=== PATIENT | female | born 1990 | race Caucasian/White ===

== ENCOUNTER → 2018-02-13 14:56 | Outpatient (CLI) | payer OTHER, MEDICAID, SELFPAY ==
[2018-02-13 14:21] VITALS: TEMP 36.6
== END ==
PROVIDERS: Family Provider Family Medicine; PCP Family Medicine; Visit Provider Physician Assistant
DX: R19.7 Diarrhea, unspecified (principal); Z53.9 Procedure and treatment not carried out, unspecified reason

== ENCOUNTER → 2018-02-13 15:08 | Outpatient (CLI) | payer OTHER, MEDICAID, SELFPAY ==
[2018-02-13 14:21] VITALS: TEMP 36.6
== END ==
PROVIDERS: Family Provider Family Medicine; PCP Family Medicine; Visit Provider Physician Assistant
DX: R19.7 Diarrhea, unspecified (principal); Z53.9 Procedure and treatment not carried out, unspecified reason

== ENCOUNTER → 2018-05-07 10:28 | Outpatient (CLI) | payer OTHER, MEDICAID, SELFPAY ==
[2018-05-07 12:18] LABS: Hematocrit 44.9 % (36-46); Hemoglobin 15.5 g/dL (12.0-16.0); Mean Corpuscular HGB Conc 34.5 % (30-36); Mean Corpuscular Hemoglobin 32.8 PG (26-34); Mean Corpuscular Volume 95.3 fL (80-100); Platelet Count 195 X10^3/uL (150-400); Red Blood Cell Count 4.71 X10^6/uL (4.0-5.2); Red Cell Distribution Width 12.7 % (11.6-14.8); White Blood Cell Count 6.3 X10^3/uL (4.5-11.0)
[2018-05-07 13:33] LABS: Neutrophils Absolute Manual 4158 /uL (3000-5900); Total Cells Counted 100
[2018-05-07 13:35] LABS: RBC Morphology Normal Morphology
== END ==
PROVIDERS: PCP Family Medicine; Visit Provider Nurse Practitioner Family
DX: R10.31 Right lower quadrant pain (principal); R10.30 Lower abdominal pain, unspecified
CPT/HCPCS: 36415; 85025

== ENCOUNTER 2018-05-11 11:18 | Emergency (ER) | payer OTHER, MEDICAID, SELFPAY ==
[2018-05-11 11:29] VITALS: BP 136/89; PULSE 84; RESP 14; TEMP 36.3; O2SAT 97; BMI 35.9
[2018-05-11 12:02] LABS: Add Manual Diff / Slide Review NO; Basophils Percent Auto 0.6 % (0-2); Eosinophils Percent Auto 1.4 % (2-4); Hematocrit 45.2 % (36-46); Hemoglobin 15.7 g/dL (12.0-16.0); Lymphocytes Percent Auto 33.8 % (25-40); Mean Corpuscular HGB Conc 34.6 % (30-36); Mean Corpuscular Hemoglobin 33.1 PG (26-34); Mean Corpuscular Volume 95.5 fL (80-100); Monocytes Percent Auto 7.5 % (3-14); Neutrophils Absolute Auto 4000 /uL (3000-5900); Neutrophils Percent Auto 56.7 % (50-75); Platelet Count 193 X10^3/uL (150-400); Red Blood Cell Count 4.73 X10^6/uL (4.0-5.2); Red Cell Distribution Width 12.8 % (11.6-14.8); White Blood Cell Count 7.1 X10^3/uL (4.5-11.0)
[2018-05-11 12:12] LABS: PTT Partial Thromboplastin Tim 30 SECONDS (26.4-36.2)
[2018-05-11 12:14] LABS: Alanine Aminotransferase 31 IU/L (9-52); Albumin 4.5 g/dL (3.5-5.0); Albumin Globulin Ratio 1.5 (1.0-2.8); Alkaline Phosphatase 66 U/L (38-126); Aspartate Aminotransferase 32 IU/L (14-36); BUN Creatinine Ratio 21.7 (6-22); Bilirubin Total 0.7 mg/dL (0.2-1.3); Blood Urea Nitrogen 13 mg/dL (7-17); Calcium 9.4 mg/dL (8.4-10.2); Carbon Dioxide 29 mmol/L (22-32); Chloride 101 mmol/L (98-107); Estimated Glomerular Filt Rate > 60.0 mL/min (>60); Globulin 3.1 g/dL (1.7-4.1); Glucose 89 mg/dL (70-100); Lipase 103 U/L (23-300); Potassium 4.6 mmol/L (3.4-5.1); Sodium 139 mmol/L (137-145); Total Protein 7.6 g/dL (6.3-8.2)
[2018-05-11 12:25] LABS: HEMOLYSIS 59 (0-50)
[2018-05-11 12:35] VITALS: BP 119/72; PULSE 68; RESP 16; O2SAT 98
--- NOTE | 2018-05-11 12:38 | ED.ABDPAIN ---
HPI - Abdominal Pain <THOMAS Campos - Last Filed: 05/11/18 23:02> General Chief Complaint: Abdominal Pain Stated Complaint: LOWER ABD PAIN Time Seen by Provider: 05/11/18 12:40 Source: patient Mode of arrival: ambulatory Limitations: no limitations History of Present Illness HPI narrative: 27-year-old female here for complaint of pain into the right lower quadrant over the past 4 weeks. She has been seen by primary care provider for this and states that she has a CT of her abdomen pending however she has not able to obtain it as a awaiting insurance requirements. She reports that she had increased pain today when her 3-year-old child jumped up on her. Palpation to the area also causes increased pain. She denies any relievers of her pain. No nausea or vomiting. Last bowel movement was earlier today and was unremarkable. She denies any urinary symptoms. No abnormal vaginal discharge or bleeding. She denies any changes in sexual partners. She denies any trauma to the area. No other concerns or complaints at this time for MD complaint: abdominal pain Related Data Home Medications Medication Instructions Recorded Confirmed Lactobacillus acidophilus capsule 100 mg PO DAILY 02/13/18 05/11/18 Previous Rx's Medication Instructions Recorded hydrocodone-acetaminophen 1 tab PO Q4-6H PRN #15 tab 05/11/18 ondansetron 4 mg PO Q6-8H PRN #10 tab 05/11/18 Allergies Allergy/AdvReac Type Severity Reaction Status Date / Time hydromorphone [From DILAUDID] AdvReac Unknown DIZZINESS Verified 05/11/18 11:34 Review of Systems <THOMAS Campos - Last Filed: 05/11/18 23:02> Constitutional Denies chills, Denies fever(s), Denies lethargy and Denies weakness Eyes Denies change in vision, Denies eye discharge, Denies irritation and Denies loss of vision ENT Ears, Nose, Mouth, and Throat: Denies change in voice, Denies neck pain and Denies sore throat Cardiovascular Denies chest pain, Denies irregular heart rhythm, Denies lightheadedness, Denies palpitations, Denies dyspnea, Denies dyspnea on exertion and Denies orthopnea Respiratory Denies cough, Denies dyspnea, Denies dyspnea on exertion and Denies wheezing Gastrointestinal Gastrointestinal: Reports abdominal pain Genitourinary Denies hematuria, Denies flank pain, Denies urinary incontinence and Denies urinary urgency Musculoskeletal Denies neck pain Integumentary/Breasts Denies pruritus, Denies erythema, Denies rash and Denies wounds Neurologic Denies confusion, Denies loss of vision and Denies weakness Psychiatric Denies anxiety, Denies confusion, Denies depression, Denies homicidal ideation and Denies suicidal ideation Endocrine Denies palpitations Hematologic/Lymphatic Denies easy bruising Allergic/Immunologic Denies wheezing Exam <THOMAS Campos - Last Filed: 05/11/18 23:02> Initial Vital Signs Initial Vital Signs: Vital Signs Temperature 97.4 F L 05/11/18 11:29 Pulse Rate 84 05/11/18 11:29 Respiratory Rate 14 05/11/18 11:29 Blood Pressure 136/89 H 05/11/18 11:29 Pulse Oximetry 97 05/11/18 11:29 Const General: cooperative and well developed Nutritional Appearance: well nourished Orientation: alert, awake, oriented x3 and not confused HENOH Mouth: oral mucosae normal and moist mucous membranes Eyes Conjunctivae: conjunctivae normal Sclera: sclerae normal Pupils: PERRL EOM: EOM intact bilaterally Resp Effort & Inspection: normal respiratory effort, able to speak in complete sentences, no respiratory distress and no use of accessory muscles Auscultation: clear to auscultation bilaterally, no rales, no rhonchi and no wheezes Cardio Rate: regular rate Rhythm: regular rhythm Heart Sounds: no click, no gallops, no murmurs and no rubs GI Inspection: non-distended Palpation: soft, no hepatosplenomegaly, No guarding, No hernia, No mass, No pulsatile mass and tender (Tenderness on palpation to right lower quadrant) Auscultation: normal bowel sounds General: No CVA tenderness Skin General: no rashes or lesions noted, No jaundice and No petechiae Neuro General: alert, oriented x3, gait normal and no focal motor deficits Speech: speech normal <Joaquín Meyer MD - Last Filed: 05/13/18 08:45> Initial Vital Signs Initial Vital Signs: Vital Signs Temperature 97.4 F L 05/11/18 11:29 Pulse Rate 84 05/11/18 11:29 Respiratory Rate 14 05/11/18 11:29 Blood Pressure 136/89 H 05/11/18 11:29 Pulse Oximetry 97 05/11/18 11:29 Course <THOMAS Campos - Last Filed: 05/11/18 23:02> Orders Ordered: Discontinued Medications Hydrocodone Bitart/Acetaminophen ([place] 5/325) 1 tab PO NOW ONE Stop: 05/11/18 14:00 Last Admin: 05/11/18 14:20 Dose: 1 tab Vital Signs - 8 hr 05/11/18 11:29 05/11/18 12:35 05/11/18 13:59 Temperature 97.4 F L Pulse Rate 84 68 71 Respiratory Rate 14 16 16 Blood Pressure 136/89 H Blood Pressure [Left Arm] 119/72 122/77 H Pulse Oximetry 97 98 98 <Joaquín Meyer MD - Last Filed: 05/13/18 08:45> Orders Ordered: Discontinued Medications Hydrocodone Bitart/Acetaminophen ([place] 5/325) 1 tab PO NOW ONE Stop: 05/11/18 14:00 Last Admin: 05/11/18 14:20 Dose: 1 tab Vital Signs - 8 hr 05/11/18 11:29 05/11/18 12:35 05/11/18 13:59 Temperature 97.4 F L Pulse Rate 84 68 71 Respiratory Rate 14 16 16 Blood Pressure 136/89 H Blood Pressure [Left Arm] 119/72 122/77 H Pulse Oximetry 97 98 98 MDM - Abdominal Pain <THOMAS Campos - Last Filed: 05/11/18 23:02> Lab Data Result diagrams: 05/11/18 11:44 05/11/18 11:44 Lab Results 05/11/18 05/11/18 05/11/18 Range/Units 11:44 11:44 11:44 WBC 7.1 (4.5-11.0) X10^3/uL RBC 4.73 (4.0-5.2) X10^6/uL Hgb 15.7 (12.0-16.0) g/dL Hct 45.2 (36-46) % MCV 95.5 (80-100) fL MCH 33.1 (26-34) PG MCHC 34.6 (30-36) % RDW 12.8 (11.6-14.8) % Plt Count 193 (150-400) X10^3/uL Neut % (Auto) 56.7 (50-75) % Lymph % (Auto) 33.8 (25-40) % Cherry % (Auto) 7.5 (3-14) % Eos % (Auto) 1.4 L (2-4) % Baso % (Auto) 0.6 (0-2) % Neut # (Auto) 4000 (3423-8629) /uL PT 11.0 (10.1-12.7) SECONDS INR 1.0 (0.9-1.3) APTT 30 (26.4-36.2) SECONDS Sodium 139 (137-145) mmol/L Potassium 4.6 (3.4-5.1) mmol/L Chloride 101 (98-107) mmol/L Carbon Dioxide 29 (22-32) mmol/L BUN 13 (7-17) mg/dL Creatinine 0.60 (0.52-1.04) mg/dL Estimated GFR > 60.0 (>60) mL/min BUN/Creatinine Ratio 21.7 (6-22) Glucose 89 (70-100) mg/dL Calcium 9.4 (8.4-10.2) mg/dL Total Bilirubin 0.7 (0.2-1.3) mg/dL AST 32 (14-36) IU/L ALT 31 (9-52) IU/L Alkaline Phosphatase 66 (38-126) U/L Total Protein 7.6 (6.3-8.2) g/dL Albumin 4.5 (3.5-5.0) g/dL Globulin 3.1 (1.7-4.1) g/dL Albumin/Globulin Ratio 1.5 (1.0-2.8) Lipase 103 (23-300) U/L Point of care testing: Point of Care Testing Test Results Negative Urine Dip Bedside Urine Glucose Negative Bedside Urine Bilirubin - Negative Bedside Urine Ketone - Negative Urine Specific Rachel 1.015 Bedside Urine Occult Blood - Negative Bedside Urine pH 7.0 Bedside Urine Protein - Negative Bedside Urine Urobilinogen - Negative Bedside Urine Nitrite - Negative Bedside Urine Leukocytes - Negative Esterase Imaging Data CT scan - abdomen: Radiologist's impression: PROCEDURE: CT ABDOMEN PELVIS W CON INDICATIONS: Right lower quadrant pain last few weeks TECHNIQUE: After the administration of intravenous contrast, 5 mm thick sections acquired from the diaphragm to the symphysis. 5 mm coronal and sagittal reformats were acquired. For radiation dose reduction, the following was used: automated exposure control, adjustment of mA and/or kV according to patient size. COMPARISON: None. FINDINGS: Image quality: Excellent. ABDOMEN: Lung bases: Lung bases are clear. Heart size is normal. Solid organs: There is diffuse hepatic fatty infiltration. Liver is normal in size and enhancement. Gallbladder is normal. Biliary system is non dilated. Pancreas enhances normally. Spleen is normal in size and enhancement. No adrenal nodules. Kidneys demonstrate normal size and enhancement, without hydronephrosis. Peritoneum and bowel: Bowel loops demonstrate normal wall thickness and caliber. The appendix is absent. There is edema in the ileocecal valve. The cecum and terminal ileum appear normal. No free fluid or air. Nodes and vessels: No retroperitoneal or mesenteric adenopathy by size criteria. Aorta and inferior vena cava are normal in size. Miscellaneous: No ventral hernias. PELVIS: Genitourinary: Bladder wall thickness is normal. There is an IUD in uterus. Ovaries are grossly normal. No pathologic free fluid. Miscellaneous: No inguinal hernias or adenopathy. Bones: No suspicious bony lesions. No vertebral body compression fractures. IMPRESSION: 1. Absence of appendix consistent with appendectomy. 2. Edematous ileocecal valve. The cecum and terminal ileum appears normal. The clinical significance of that finding is uncertain. Recommend clinical correlation and followup. Dictated by: Simone Fonseca M.D. on 05/11/2018 at 13:46 Approved by: Simone Fonseca M.D. on 05/11/2018 at 13:50 MDM Narrative Medical decision making narrative: CBC Chem panel were obtained were unremarkable. Lipase was negative. Urinalysis was negative for urinary tract infection. CT of the abdomen was obtained and shows edema to the ileocecal valve with no other abdominal findings. Unknown etiology of this finding. Discussed case with surgery Dr. Herrera whose office will follow up with patient next week. Patient to call the office 1st thing Sunday morning to schedule follow-up appointment. [place] is prescribed for pain. Zofran for nausea vomiting. For any worsening symptoms return to the emergency room. <Joaquín Meyer MD - Last Filed: 05/13/18 08:45> Lab Data Lab Results 08/04/18 08/04/18 08/04/18 Range/Units 11:44 11:44 11:44 WBC 7.1 (4.5-11.0) X10^3/uL RBC 4.73 (4.0-5.2) X10^6/uL Hgb 15.7 (12.0-16.0) g/dL Hct 45.2 (36-46) % MCV 95.5 (80-100) fL MCH 33.1 (26-34) PG MCHC 34.6 (30-36) % RDW 12.8 (11.6-14.8) % Plt Count 193 (150-400) X10^3/uL Neut % (Auto) 56.7 (50-75) % Lymph % (Auto) 33.8 (25-40) % Cherry % (Auto) 7.5 (3-14) % Eos % (Auto) 1.4 L (2-4) % Baso % (Auto) 0.6 (0-2) % Neut # (Auto) 4000 (1688-4665) /uL PT 11.0 (10.1-12.7) SECONDS INR 1.0 (0.9-1.3) APTT 30 (26.4-36.2) SECONDS Sodium 139 (137-145) mmol/L Potassium 4.6 (3.4-5.1) mmol/L Chloride 101 (98-107) mmol/L Carbon Dioxide 29 (22-32) mmol/L BUN 13 (7-17) mg/dL Creatinine 0.60 (0.52-1.04) mg/dL Estimated GFR > 60.0 (>60) mL/min BUN/Creatinine Ratio 21.7 (6-22) Glucose 89 (70-100) mg/dL Calcium 9.4 (8.4-10.2) mg/dL Total Bilirubin 0.7 (0.2-1.3) mg/dL AST 32 (14-36) IU/L ALT 31 (9-52) IU/L Alkaline Phosphatase 66 (38-126) U/L Total Protein 7.6 (6.3-8.2) g/dL Albumin 4.5 (3.5-5.0) g/dL Globulin 3.1 (1.7-4.1) g/dL Albumin/Globulin Ratio 1.5 (1.0-2.8) Lipase 103 (23-300) U/L Point of care testing: Point of Care Testing Test Results Negative Urine Dip Bedside Urine Glucose Negative Bedside Urine Bilirubin - Negative Bedside Urine Ketone - Negative Urine Specific Rachel 1.015 Bedside Urine Occult Blood - Negative Bedside Urine pH 7.0 Bedside Urine Protein - Negative Bedside Urine Urobilinogen - Negative Bedside Urine Nitrite - Negative Bedside Urine Leukocytes - Negative Esterase Discharge Plan Departure Patient Disposition: Home, Self-Care Clinical Impression: Abdominal pain Discharge Date/Time: 05/11/18 15:13 Interventions: ED Discharge Assessment Last Done: 05/11/18 15:13 Instructions: DI for Abdominal Pain-Adult Activity Restrictions/Additional Instructions: Laboratory results today were unremarkable. CT the abdomen shows some edema to the ileocecal valve with unknown cause of this. Follow up with surgery for further evaluation. Call the number and number provided to schedule follow-up appointment beginning of next week. Use [place] as needed for any discomfort no driving while on the [place]. Zofran is also prescribed for nausea vomiting use as directed. For any worsening symptoms return to the emergency room. Prescriptions: New hydrocodone-acetaminophen 5-325 mg tablet 1 tab PO Q4-6H PRN (Reason: pain) Qty: 15 RF: 0 ondansetron 4 mg tablet,disintegrating 4 mg PO Q6-8H PRN (Reason: nausea and vomiting) Qty: 10 RF: 0 No Action Lactobacillus acidophilus capsule 100 mg PO DAILY RF: 0 Referrals: Jemma Anton MD [Primary Care Provider] - Hilaria Herrera MD [Physician] -
[2018-05-11 13:59] VITALS: BP 122/77; PULSE 71; RESP 16; O2SAT 98
[2018-05-11] MEDS: HYDROCODONE/ACET 5/325 TABLET 1 TAB PO (14:20)
[2018-05-11 15:01] VITALS: BP 122/68; PULSE 55; RESP 14; O2SAT 97
== END 2018-05-11 15:13 | disposition home or self-care (01) ==
PROVIDERS: Emergency Medicine; Emergency Provider Nurse Practitioner Family; PCP Family Medicine
DX: R10.9 Unspecified abdominal pain (principal)
CPT/HCPCS: 36591; 74177; 80053; 81003; 81025; 83690; 85025; 85610; 85730; 99283; 99284; Q9967

== ENCOUNTER 2018-05-16 10:47 | Day surgery (SDC) | payer OTHER, MEDICAID, SELFPAY ==
--- NOTE | 2018-05-16 | PATH_ITS ---
[facility] Accession Number: [id number] . 01 Material submitted: . PART A: ILEOCECAL VALVE BIOPSY PART B: DISTAL ILEUM BIOPSY PART C: RANDOM COLON BIOPSY . 02 Diagnosis: A. Ileocecal Valve, Biopsy: Colonic mucosa with no significant diagnostic abnormality. Negative for active inflammation, granulomas, dysplasia and malignancy. . B. Distal Ileum, Biopsy: Small bowel mucosa with no diagnostic abnormality. Negative for active inflammation, dysplasia and malignancy. . C. Random Colon, Biopsies: Colonic mucosa with no diagnostic abnormality. Negative for active, chronic and microscopic colitis. Negative for dysplasia and malignancy. [facility]05/20/2018 . 02 Electronically signed: . Christine Cueva MD, Pathologist NPI- [id number] . 01 Gross description: . Part A: ILEOCECAL VALVE BIOPSY: Received in formalin is 1 fragment(s) of main, soft tissue measuring 0.2 x 0.1 x 0.1 cm submitted entirely in 1 cassette(s) Part B: DISTAL ILEUM BIOPSY: Received in formalin is 1 fragment(s) of main, soft tissue measuring 0.3 x 0.2 x 0.1 cm submitted entirely in 1 cassette(s) Part C: RANDOM COLON BIOPSY: Received in formalin are multiple fragment(s) of main, soft tissue measuring 0.7 x 0.3 x 0.2 cm in aggregate submitted entirely in 1 cassette(s) /CKI /CKI . 02 Pathologist provided ICD-10: R10.9 . 02 CPT . 576467, [id number], [id number] Performed at: [address] [place] [address] [address], [place], [place] [id number] MD Joss Sy MD Phone: [phone] Performed at: 02 [facility] [place] [address] [place] [id number] MD Zachary Paige MD Phone: [phone]
[2018-05-16 11:05] VITALS: BP 115/74; PULSE 79; RESP 20; TEMP 36.8; O2SAT 97; BMI 35.9
[2018-05-16] MEDS: SODIUM CHLORIDE 0.9% 1,000 ML 200 ML IV (11:10)
--- NOTE | 2018-05-16 11:19 | PM.PREOP ---
Pre-operative Note Interval Note Pre-op Check: Yes History & Physical Reviewed by Physician Changes: No
[2018-05-16] MEDS: MIDAZOLAM 5 MG/5 ML VIAL IV (11:54)
[2018-05-16] MEDS: fentaNYL 250 MCG/5 ML INJ IV (11:55)
--- NOTE | 2018-05-16 11:57 | P.OP_ITS ---
Operative Date/Time/Diagnoses Date of procedure: 05/16/18 Time of procedure: 11:54 Pre-op diagnosis: Abdominal pain Abnormal CT scan Post-op diagnosis: same Procedure & Clinicians Procedure: Colonoscopy to the cecum with mucosal biopsies Same procedure as scheduled: Yes Indications: No prior colonoscopy Surgeon: Hilaria Herrera Click Yes if Unassisted: Yes Anesthesia Type: Sedation (Versed 10 mg; fentanyl 250 mcg) Operative Notes Findings: 1. Excellent prep 2. No polyps or mass lesions 3. Normal appearing mucosa throughout 4. Specifically very normal-appearing ileocecal valve and terminal ileum. 5. No significant diverticular disease appreciated 6. Grade 1-2 internal hemorrhoids Closure Type: not applicable Specimen(s): other (1. Random mucosal biopsies; 2. Terminal ileum biopsy3. Ileocecal valve biopsy) Estimated Blood Loss (mL): 1 Procedure in detail: After obtaining informed consent, the patient was brought to the GI suite and placed in the left lateral decubitus position on the examination table. After placement of appropriate monitors, the patient was given incremental doses of Versed and Fentanyl until an appropriate level of sedation was achieved. A time out was held per SCOAP protocol. A digital rectal examination was performed and did not reveal any masses or obstructing lesions. The colonoscope was gently passed into the patient's anus and the entire colon navigated to the level of the cecum with minimal difficulty. Once in the cecum, the ileocecal valve was cannulated and the terminal ileum examined. It was grossly normal in appearance. Biopsies were taken here. The scope was then withdrawn and the ileocecal valve itself carefully examined. Again it was grossly normal in appearance. Cold forceps biopsies were taken here as well. The scope was withdrawn being sure to go before and beyond all mucosal folds and prominences and get an excellent examination. The findings are noted above. At the level of the rectal vault, the scope was retroflexed and the internal anal canal was examined. The scope was straightened and air aspirated from the colon. The instrument was removed from the patient's body and the procedure was concluded. The patient was allowed to awaken from sedation without difficulty and taken to the post-anesthesia care unit in good condition. Total sedation time 28 min Total withdrawal time 12 min Complications: none Condition: stable Disposition: PACU Plan for aftercare: 1. Discharge to home 2. We will contact you with results and recommendations 3. Refer to tdp displays analyst regarding pelvic pain.
[2018-05-16 11:58] VITALS: BP 103/58; PULSE 83; RESP 15; TEMP 37; O2SAT 98
[2018-05-16 13:00] VITALS: BP 80/40; PULSE 84; RESP 20; TEMP 36.6; O2SAT 99
[2018-05-16 13:40] VITALS: BP 101/61; PULSE 84; RESP 20; TEMP 36.6; O2SAT 99
[2018-05-16 14:15] VITALS: BP 100/65; PULSE 84; RESP 20; TEMP 36.6; O2SAT 99
== END 2018-05-16 14:28 | disposition home or self-care (01) ==
PROVIDERS: PCP Family Medicine; Visit Provider Surgery
PROC: 0DJD8ZZ Inspection of Lower Intestinal Tract, Via Natural or Artificial Opening Endoscopic (ICD-10-PCS; CPT 45378; principal; 2018-05-16 11:45)
DX: R10.9 Unspecified abdominal pain (principal); R93.3 Abnormal findings on diagnostic imaging of other parts of digestive tract; K64.1 Second degree hemorrhoids
CPT/HCPCS: 45380; 88305; 99152; 99153; J2250; J3010

== ENCOUNTER 2018-09-03 16:03 | Emergency (ER) | payer OTHER, MEDICAID, SELFPAY ==
[2018-09-03 16:07] VITALS: BP 131/88; PULSE 84; RESP 20; TEMP 36.7; O2SAT 100
--- NOTE | 2018-09-03 18:19 | DI.US.S_ITS ---
PROCEDURE: US PELVIC COMPLETE INDICATIONS: PAIN TECHNIQUE: Real-time scanning was performed of the pelvic organs, with image documentation. Additional endovaginal scanning was necessary due to incomplete visualization of the adnexal and endometrial structures by transabdominal scanning. COMPARISON: [facility], US, US PELVIC COMPLETE, 08/16/2018, 9:47. FINDINGS: Transabdominal scanning: Limited scanning through the kidneys shows no hydronephrosis. No pathologic free abdominal or pelvic fluid. Endovaginal scanning: Uterus: Uterus is normal in size at 6.3 x 3.5 x 4.7 cm. The endometrium measures 0.3 cm in combined thickness. There are small nabothian cysts. Ovaries: The right ovary measures 2.4 x 1.6 x 1.8 cm and the left ovary measures 2.4 x 2.1 x 2.5 cm. No adnexal masses. There are scattered bilateral ovarian follicles. There is patent arterial flow demonstrated in the right and left ovaries. IMPRESSION: 1. No acute sonographic abnormality identified in the pelvis. Dictated by: Joss Finley M.D. on 09/03/2018 at 19:57 Approved by: Joss Finley M.D. on 09/03/2018 at 19:59
[2018-09-03] MEDS: KETOROLAC 60 MG/2 ML VIAL IM (19:27)
[2018-09-03 20:19] LABS: Add Manual Diff / Slide Review NO; Basophils Percent Auto 0.7 % (0-2); Eosinophils Percent Auto 1.9 % (2-4); Hematocrit 43.4 % (36-46); Hemoglobin 14.7 g/dL (12.0-16.0); Lymphocytes Percent Auto 34.8 % (25-40); Mean Corpuscular HGB Conc 33.9 % (30-36); Mean Corpuscular Hemoglobin 32.8 PG (26-34); Mean Corpuscular Volume 96.6 fL (80-100); Monocytes Percent Auto 6.6 % (3-14); Neutrophils Absolute Auto 4500 /uL (3000-5900); Platelet Count 206 X10^3/uL (150-400); Red Blood Cell Count 4.49 X10^6/uL (4.0-5.2); Red Cell Distribution Width 12.9 % (11.6-14.8); White Blood Cell Count 8.1 X10^3/uL (4.5-11.0)
[2018-09-03 20:37] LABS: Alanine Aminotransferase 27 IU/L (9-52); Albumin 4.1 g/dL (3.5-5.0); Albumin Globulin Ratio 1.3 (1.0-2.8); Alkaline Phosphatase 79 U/L (38-126); Aspartate Aminotransferase 25 IU/L (14-36); BUN Creatinine Ratio 21.7 (6-22); Bilirubin Total 0.3 mg/dL (0.2-1.3); Blood Urea Nitrogen 13 mg/dL (7-17); Carbon Dioxide 29 mmol/L (22-32); Chloride 103 mmol/L (98-107); Estimated Glomerular Filt Rate > 60.0 mL/min (>60); Globulin 3.2 g/dL (1.7-4.1); Glucose 99 mg/dL (70-100); HEMOLYSIS < 15 (0-50); Potassium 3.8 mmol/L (3.4-5.1); Sodium 141 mmol/L (137-145); Total Protein 7.3 g/dL (6.3-8.2)
--- NOTE | 2018-09-03 20:54 | ED.ABDPAIN ---
HPI - Abdominal Pain [facility] - Last Filed: 09/03/18 21:05> General Chief Complaint: Abdominal Pain Stated Complaint: ovarian cysts, pain Time Seen by Provider: 09/03/18 18:07 Source: patient Mode of arrival: ambulatory Limitations: no limitations History of Present Illness HPI narrative: Patient is a 27-year-old female who presents with chief complaint of ovarian cyst pain. She has states this has been on going for several weeks. She states that she called her primary care OBs office several times and has not heard back from them. She denies any dysuria urgency frequency. She denies any nausea vomiting or diarrhea. She denies any chest pain or shortness of breath. She states her last bowel movement was this morning. She denies chance of . She denies chance of sexually transmitted infections. She denies any to be tested for STIs this point time. Last bowel movement was this morning. Related Data Home Medications Medication Instructions Recorded Confirmed Lactobacillus acidophilus capsule 100 mg PO DAILY 02/13/18 08/16/18 norethindrone (contraceptive) 0.35 mg PO DAILY 09/03/18 09/03/18 [Deblitane] Allergies Allergy/AdvReac Type Severity Reaction Status Date / Time hydromorphone [From DILAUDID] AdvReac Unknown DIZZINESS Verified 08/16/18 09:37 Review of Systems <[facility] - Last Filed: 09/03/18 21:05> Review of Systems GENERAL: Denies chills, fatigue, malaise, fever, sweats. HEENT: Denies sinus pain, ear pain, sore throat, difficulty swallowing, dizziness. RESPIRATORY: Denies dyspnea, cough, wheezing, hemoptysis, sputum. CARDIOVASCULAR: Denies chest pain, palpitations, orthopnea, edema, GASTROINTESTINAL: See HPI : See HPI MUSCULOSKELETAL: denies weakness, joint pain, or bony pain SKIN: Denies rash, skin lesions, or other NEUROLOGIC: Denies weakness, headache, numbness, change in speech, confusion, seizures, incoordination. PSYCHIATRIC: No concerning psychosocial issues. 12 point review of systems is negative except for those stated above Exam <QUOC Dougherty - Last Filed: 09/03/18 21:05> Narrative Exam Narrative: GENERAL: This is a well-nourished, well-developed patient, in no acute distress HEAD: Atraumatic. Normocephalic. No temporal or scalp tenderness. EYES: Pupils equal round and reactive. Extraocular motions intact. No scleral icterus. No injection or drainage. ENT: Nose without bleeding, purulent drainage or septal hematoma. Throat without erythema, tonsillar hypertrophy or exudate. Uvula midline. Airway patent. NECK: Trachea midline. No JVD or lymphadenopathy. Supple, nontender, no meningeal signs. CARDIOVASCULAR: Regular rate and rhythm without murmurs, gallops, or rubs. RESPIRATORY: Clear to auscultation. Breath sounds equal bilaterally. No wheezes, rales, or rhonchi. no cough. no increased respiratory effort. GASTROINTESTINAL: Abdomen soft, nondistended. No hepato-splenomegaly, or palpable masses. No guarding. diffusely tender rlq and llq. No guarding noted. Active bowel sounds. EXTREMITIES: No clubbing, cyanosis, or edema. No joint tenderness, effusion, or edema noted. BACK: Nontender without deformity or crepitance. No flank tenderness. NEURO: AOx3. SKIN: No rash or erythema. Initial Vital Signs Initial Vital Signs: Vital Signs Temperature 98.1 F 09/03/18 16:07 Pulse Rate 84 09/03/18 16:07 Respiratory Rate 20 09/03/18 16:07 Blood Pressure 131/88 09/03/18 16:07 Pulse Oximetry 100 09/03/18 16:07 <Vince Huston DO - Last Filed: 09/03/18 21:08> Initial Vital Signs Initial Vital Signs: Vital Signs Temperature 98.1 F 09/03/18 16:07 Pulse Rate 84 09/03/18 16:07 Respiratory Rate 20 09/03/18 16:07 Blood Pressure 131/88 09/03/18 16:07 Pulse Oximetry 100 09/03/18 16:07 Course <MARYANN Dougherty - Last Filed: 09/03/18 21:05> Orders Ordered: ED Orders 09/03/18 18:19 US pelvic complete Stat 09/03/18 20:11 Complete Blood Count AUTO DIFF Stat Comprehensive Metabolic Panel Stat Discontinued Medications Ketorolac Tromethamine (Toradol) 60 mg IM NOW ONE Stop: 09/03/18 18:18 Last Admin: 09/03/18 19:27 Dose: 60 mg Vital Signs - 8 hr 09/03/18 16:07 09/03/18 21:01 Temperature 98.1 F Pulse Rate 84 65 Respiratory Rate 20 15 Blood Pressure 131/88 Blood Pressure [Right Arm] 125/72 Pulse Oximetry 100 100 <Vince Huston DO - Last Filed: 09/03/18 21:08> Orders Ordered: ED Orders 09/03/18 18:19 US pelvic complete Stat 09/03/18 20:11 Complete Blood Count AUTO DIFF Stat Comprehensive Metabolic Panel Stat Discontinued Medications Ketorolac Tromethamine (Toradol) 60 mg IM NOW ONE Stop: 09/03/18 18:18 Last Admin: 09/03/18 19:27 Dose: 60 mg Vital Signs - 8 hr 09/03/18 16:07 09/03/18 21:01 Temperature 98.1 F Pulse Rate 84 65 Respiratory Rate 20 15 Blood Pressure 131/88 Blood Pressure [Right Arm] 125/72 Pulse Oximetry 100 100 MDM - Abdominal Pain <ELIEZER Dougherty- - Last Filed: 09/03/18 21:05> Lab Data Result diagrams: 09/03/18 20:11 09/03/18 20:11 Lab Results 09/03/18 09/03/18 Range/Units 20:11 20:11 WBC 8.1 (4.5-11.0) X10^3/uL RBC 4.49 (4.0-5.2) X10^6/uL Hgb 14.7 (12.0-16.0) g/dL Hct 43.4 (36-46) % MCV 96.6 (80-100) fL MCH 32.8 (26-34) PG MCHC 33.9 (30-36) % RDW 12.9 (11.6-14.8) % Plt Count 206 (150-400) X10^3/uL Neut % (Auto) 56.0 (50-75) % Lymph % (Auto) 34.8 (25-40) % [place] % (Auto) 6.6 (3-14) % Eos % (Auto) 1.9 L (2-4) % Baso % (Auto) 0.7 (0-2) % Neut # (Auto) 4500 (3024-8155) /uL Sodium 141 (137-145) mmol/L Potassium 3.8 (3.4-5.1) mmol/L Chloride 103 (98-107) mmol/L Carbon Dioxide 29 (22-32) mmol/L BUN 13 (7-17) mg/dL Creatinine 0.60 (0.52-1.04) mg/dL Estimated GFR > 60.0 (>60) mL/min BUN/Creatinine Ratio 21.7 (6-22) Glucose 99 (70-100) mg/dL Calcium 9.0 (8.4-10.2) mg/dL Total Bilirubin 0.3 (0.2-1.3) mg/dL AST 25 (14-36) IU/L ALT 27 (9-52) IU/L Alkaline Phosphatase 79 (38-126) U/L Total Protein 7.3 (6.3-8.2) g/dL Albumin 4.1 (3.5-5.0) g/dL Globulin 3.2 (1.7-4.1) g/dL Albumin/Globulin Ratio 1.3 (1.0-2.8) Point of care testing: Point of Care Testing Test Results Negative Urine Dip Bedside Urine Glucose Negative Bedside Urine Bilirubin - Negative Bedside Urine Ketone - Negative Urine Specific [place] 1.025 Bedside Urine Occult Blood - Negative Bedside Urine pH 6.0 Bedside Urine Protein - Negative Bedside Urine Urobilinogen - Negative Bedside Urine Nitrite - Negative Bedside Urine Leukocytes - Negative Esterase Imaging Data pelvic US: Radiologist's impression: [place] [address] Ultrasound Report Signed Patient: Mera Palacios LMR#: [id number] : 1990Acct:[id number] Age/Sex: 27 / FDate of Service: 09/03/18 Loc: ED Accession Number: [id number] Procedure: US pelvic complete Ordering Provider: Rosalie Pena PROCEDURE: US PELVIC COMPLETE INDICATIONS: PAIN TECHNIQUE: Real-time scanning was performed of the pelvic organs, with image documentation. Additional endovaginal scanning was necessary due to incomplete visualization of the adnexal and endometrial structures by transabdominal scanning. COMPARISON: [facility], US, US PELVIC COMPLETE, 08/16/2018, 9:47. FINDINGS: Transabdominal scanning: Limited scanning through the kidneys shows no hydronephrosis. No pathologic free abdominal or pelvic fluid. Endovaginal scanning: Uterus: Uterus is normal in size at 6.3 x 3.5 x 4.7 cm. The endometrium measures 0.3 cm in combined thickness. There are small nabothian cysts. Ovaries: The right ovary measures 2.4 x 1.6 x 1.8 cm and the left ovary measures 2.4 x 2.1 x 2.5 cm. No adnexal masses. There are scattered bilateral ovarian follicles. There is patent arterial flow demonstrated in the right and left ovaries. IMPRESSION: 1. No acute sonographic abnormality identified in the pelvis. Dictated by: Joss Finley M.D. on 09/03/2018 at 19:57 Approved by: Joss Finley M.D. on 09/03/2018 at 19:59 [facility] Narrative Medical decision making narrative: Patient is a 27-year-old female presenting with lower right and left quadrant pain. She had a negative UA, normal CBC, normal CMP and a benign pelvic ultrasound. She has been experiencing this pain for weeks. At this point in time given that we ruled out UTI, ovarian torsion and she has no signs of appendicitis given her lack of white blood cell count and ability to eat and drink, I think she is safe to follow up with her OBGYN at this point time. Patient has no questions or concerns upon discharge. She was treated Toradol in the emergency department, so I encouraged her to hold off on ibuprofen for 6-8 hours after the Toradol injection. Discussed return precautions of chest pain, shortness of breath or any acute needs. Encouraged her to call her primary care's office tomorrow. <Vince Huston, DO - Last Filed: 09/03/18 21:08> Lab Data Lab Results 09/03/18 09/03/18 Range/Units 20:11 20:11 WBC 8.1 (4.5-11.0) X10^3/uL RBC 4.49 (4.0-5.2) X10^6/uL Hgb 14.7 (12.0-16.0) g/dL Hct 43.4 (36-46) % MCV 96.6 (80-100) fL MCH 32.8 (26-34) PG MCHC 33.9 (30-36) % RDW 12.9 (11.6-14.8) % Plt Count 206 (150-400) X10^3/uL Neut % (Auto) 56.0 (50-75) % Lymph % (Auto) 34.8 (25-40) % [place] % (Auto) 6.6 (3-14) % Eos % (Auto) 1.9 L (2-4) % Baso % (Auto) 0.7 (0-2) % Neut # (Auto) 4500 (1856-4852) /uL Sodium 141 (137-145) mmol/L Potassium 3.8 (3.4-5.1) mmol/L Chloride 103 (98-107) mmol/L Carbon Dioxide 29 (22-32) mmol/L BUN 13 (7-17) mg/dL Creatinine 0.60 (0.52-1.04) mg/dL Estimated GFR > 60.0 (>60) mL/min BUN/Creatinine Ratio 21.7 (6-22) Glucose 99 (70-100) mg/dL Calcium 9.0 (8.4-10.2) mg/dL Total Bilirubin 0.3 (0.2-1.3) mg/dL AST 25 (14-36) IU/L ALT 27 (9-52) IU/L Alkaline Phosphatase 79 (38-126) U/L Total Protein 7.3 (6.3-8.2) g/dL Albumin 4.1 (3.5-5.0) g/dL Globulin 3.2 (1.7-4.1) g/dL Albumin/Globulin Ratio 1.3 (1.0-2.8) Point of care testing: Point of Care Testing Test Results Negative Urine Dip Bedside Urine Glucose Negative Bedside Urine Bilirubin - Negative Bedside Urine Ketone - Negative Urine Specific [place] 1.025 Bedside Urine Occult Blood - Negative Bedside Urine pH 6.0 Bedside Urine Protein - Negative Bedside Urine Urobilinogen - Negative Bedside Urine Nitrite - Negative Bedside Urine Leukocytes - Negative Esterase Discharge Plan Departure Patient Disposition: Home Clinical Impression: Abdominal pain Instructions: DI for Abdominal Pain-Adult Activity Restrictions/Additional Instructions: Please follow-up with her primary care provider as we discussed. Please monitor for fever, inability keep down fluids or any acute concerns. Please come back to the emergency department if necessary. Please eat a simple diet, push clear fluids and rest. Prescriptions: No Action Lactobacillus acidophilus capsule 100 mg PO DAILY RF: 0 norethindrone (contraceptive) [Deblitane] 0.35 mg tablet 0.35 mg PO DAILY RF: 0 Referrals: Araceli Castaneda MD [Primary Care Provider] - <Vince Huston DO - Last Filed: 09/03/18 21:08> Cosign ED Attending Jeovany Attestation: I was available for consultation during this patient's emergency department encounter
--- NOTE | 2018-09-03 20:59 | ED_ITS ---
HPI - Abdominal Pain <[facility] - Last Filed: 09/03/18 21:05> General Chief Complaint: Abdominal Pain Stated Complaint: ovarian cysts, pain Time Seen by Provider: 09/03/18 18:07 Source: patient Mode of arrival: ambulatory Limitations: no limitations History of Present Illness HPI narrative: Patient is a 27-year-old female who presents with chief complaint of ovarian cyst pain. She has states this has been on going for several weeks. She states that she called her primary care OBs office several times and has not heard back from them. She denies any dysuria urgency frequency. She denies any nausea vomiting or diarrhea. She denies any chest pain or shortness of breath. She states her last bowel movement was this morning. She denies chance of . She denies chance of sexually transmitted infections. She denies any to be tested for STIs this point time. Last bowel movement was this morning. Related Data Home Medications Medication Instructions Recorded Confirmed Lactobacillus acidophilus capsule 100 mg PO DAILY 02/13/18 08/16/18 norethindrone (contraceptive) 0.35 mg PO DAILY 09/03/18 09/03/18 [Deblitane] Allergies Allergy/AdvReac Type Severity Reaction Status Date / Time hydromorphone [From DILAUDID] AdvReac Unknown DIZZINESS Verified 08/16/18 09:37 Review of Systems <[facility] - Last Filed: 09/03/18 21:05> Review of Systems GENERAL: Denies chills, fatigue, malaise, fever, sweats. HEENT: Denies sinus pain, ear pain, sore throat, difficulty swallowing, dizziness. RESPIRATORY: Denies dyspnea, cough, wheezing, hemoptysis, sputum. CARDIOVASCULAR: Denies chest pain, palpitations, orthopnea, edema, GASTROINTESTINAL: See HPI : See HPI MUSCULOSKELETAL: denies weakness, joint pain, or bony pain SKIN: Denies rash, skin lesions, or other NEUROLOGIC: Denies weakness, headache, numbness, change in speech, confusion, seizures, incoordination. PSYCHIATRIC: No concerning psychosocial issues. 12 point review of systems is negative except for those stated above Exam <QUOC Dougherty - Last Filed: 09/03/18 21:05> Narrative Exam Narrative: GENERAL: This is a well-nourished, well-developed patient, in no acute distress HEAD: Atraumatic. Normocephalic. No temporal or scalp tenderness. EYES: Pupils equal round and reactive. Extraocular motions intact. No scleral icterus. No injection or drainage. ENT: Nose without bleeding, purulent drainage or septal hematoma. Throat without erythema, tonsillar hypertrophy or exudate. Uvula midline. Airway patent. NECK: Trachea midline. No JVD or lymphadenopathy. Supple, nontender, no meningeal signs. CARDIOVASCULAR: Regular rate and rhythm without murmurs, gallops, or rubs. RESPIRATORY: Clear to auscultation. Breath sounds equal bilaterally. No wheezes , rales, or rhonchi. no cough. no increased respiratory effort. GASTROINTESTINAL: Abdomen soft, nondistended. No hepato-splenomegaly, or palpable masses. No guarding. diffusely tender rlq and llq. No guarding noted. Active bowel sounds. EXTREMITIES: No clubbing, cyanosis, or edema. No joint tenderness, effusion, or edema noted. BACK: Nontender without deformity or crepitance. No flank tenderness. NEURO: AOx3. SKIN: No rash or erythema. Initial Vital Signs Initial Vital Signs: Vital Signs Temperature 98.1 F 09/03/18 16:07 Pulse Rate 84 09/03/18 16:07 Respiratory Rate 20 09/03/18 16:07 Blood Pressure 131/88 09/03/18 16:07 Pulse Oximetry 100 09/03/18 16:07 <Vince Huston DO - Last Filed: 09/03/18 21:08> Initial Vital Signs Initial Vital Signs: Vital Signs Temperature 98.1 F 09/03/18 16:07 Pulse Rate 84 09/03/18 16:07 Respiratory Rate 20 09/03/18 16:07 Blood Pressure 131/88 09/03/18 16:07 Pulse Oximetry 100 09/03/18 16:07 Course <MARYANN Dougherty - Last Filed: 09/03/18 21:05> Orders Ordered: ED Orders 09/03/18 18:19 US pelvic complete Stat 09/03/18 20:11 Complete Blood Count AUTO DIFF Stat Comprehensive Metabolic Panel Stat Discontinued Medications Ketorolac Tromethamine (Toradol) 60 mg IM NOW ONE Stop: 09/03/18 18:18 Last Admin: 09/03/18 19:27 Dose: 60 mg Vital Signs - 8 hr 09/03/18 16:07 09/03/18 21:01 Temperature 98.1 F Pulse Rate 84 65 Respiratory Rate 20 15 Blood Pressure 131/88 Blood Pressure [Right Arm] 125/72 Pulse Oximetry 100 100 <Vince Huston DO - Last Filed: 09/03/18 21:08> Orders Ordered: ED Orders 09/03/18 18:19 US pelvic complete Stat 09/03/18 20:11 Complete Blood Count AUTO DIFF Stat Comprehensive Metabolic Panel Stat Discontinued Medications Ketorolac Tromethamine (Toradol) 60 mg IM NOW ONE Stop: 09/03/18 18:18 Last Admin: 09/03/18 19:27 Dose: 60 mg Vital Signs - 8 hr 09/03/18 16:07 09/03/18 21:01 Temperature 98.1 F Pulse Rate 84 65 Respiratory Rate 20 15 Blood Pressure 131/88 Blood Pressure [Right Arm] 125/72 Pulse Oximetry 100 100 MDM - Abdominal Pain <ELIEZER Dougherty- - Last Filed: 09/03/18 21:05> Lab Data Result diagrams: 09/03/18 20:11 09/03/18 20:11 Lab Results 09/03/18 09/03/18 Range/Units 20:11 20:11 WBC 8.1 (4.5-11.0) X10^3/uL RBC 4.49 (4.0-5.2) X10^6/uL Hgb 14.7 (12.0-16.0) g/dL Hct 43.4 (36-46) % MCV 96.6 (80-100) fL MCH 32.8 (26-34) PG MCHC 33.9 (30-36) % RDW 12.9 (11.6-14.8) % Plt Count 206 (150-400) X10^3/uL Neut % (Auto) 56.0 (50-75) % Lymph % (Auto) 34.8 (25-40) % [place] % (Auto) 6.6 (3-14) % Eos % (Auto) 1.9 L (2-4) % Baso % (Auto) 0.7 (0-2) % Neut # (Auto) 4500 (4873-7614) /uL Sodium 141 (137-145) mmol/L Potassium 3.8 (3.4-5.1) mmol/L Chloride 103 (98-107) mmol/L Carbon Dioxide 29 (22-32) mmol/L BUN 13 (7-17) mg/dL Creatinine 0.60 (0.52-1.04) mg/dL Estimated GFR > 60.0 (>60) mL/min BUN/Creatinine Ratio 21.7 (6-22) Glucose 99 (70-100) mg/dL Calcium 9.0 (8.4-10.2) mg/dL Total Bilirubin 0.3 (0.2-1.3) mg/dL AST 25 (14-36) IU/L ALT 27 (9-52) IU/L Alkaline Phosphatase 79 (38-126) U/L Total Protein 7.3 (6.3-8.2) g/dL Albumin 4.1 (3.5-5.0) g/dL Globulin 3.2 (1.7-4.1) g/dL Albumin/Globulin Ratio 1.3 (1.0-2.8) Point of care testing: Point of Care Testing Test Results Negative Urine Dip Bedside Urine Glucose Negative Bedside Urine Bilirubin - Negative Bedside Urine Ketone - Negative Urine Specific [place] 1.025 Bedside Urine Occult Blood - Negative Bedside Urine pH 6.0 Bedside Urine Protein - Negative Bedside Urine Urobilinogen - Negative Bedside Urine Nitrite - Negative Bedside Urine Leukocytes - Negative Esterase Imaging Data pelvic US: Radiologist's impression: [place] [address] Ultrasound Report Signed Patient: Mera Palacios LMR#: [id number] : 1990Acct:[id number] Age/Sex: 27 / FDate of Service: 09/03/18 Loc: ED Accession Number: [id number] Procedure: US pelvic complete Ordering Provider: Rosalie Pena PROCEDURE: US PELVIC COMPLETE INDICATIONS: PAIN TECHNIQUE: Real-time scanning was performed of the pelvic organs, with image documentation. Additional endovaginal scanning was necessary due to incomplete visualization of the adnexal and endometrial structures by transabdominal scanning. COMPARISON: [facility], US, US PELVIC COMPLETE, 08/16/2018, 9: 47. FINDINGS: Transabdominal scanning: Limited scanning through the kidneys shows no hydronephrosis. No pathologic free abdominal or pelvic fluid. Endovaginal scanning: Uterus: Uterus is normal in size at 6.3 x 3.5 x 4.7 cm. The endometrium measures 0.3 cm in combined thickness. There are small nabothian cysts. Ovaries: The right ovary measures 2.4 x 1.6 x 1.8 cm and the left ovary measures 2.4 x 2.1 x 2.5 cm. No adnexal masses. There are scattered bilateral ovarian follicles. There is patent arterial flow demonstrated in the right and left ovaries. IMPRESSION: 1. No acute sonographic abnormality identified in the pelvis. Dictated by: Joss Finley M.D. on 09/03/2018 at 19:57 Approved by: Joss Finley M.D. on 09/03/2018 at 19:59 [facility] Narrative Medical decision making narrative: Patient is a 27-year-old female presenting with lower right and left quadrant pain. She had a negative UA, normal CBC, normal CMP and a benign pelvic ultrasound. She has been experiencing this pain for weeks. At this point in time given that we ruled out UTI, ovarian torsion and she has no signs of appendicitis given her lack of white blood cell count and ability to eat and drink, I think she is safe to follow up with her OBGYN at this point time. Patient has no questions or concerns upon discharge. She was treated Toradol in the emergency department, so I encouraged her to hold off on ibuprofen for 6-8 hours after the Toradol injection. Discussed return precautions of chest pain, shortness of breath or any acute needs. Encouraged her to call her primary care's office tomorrow. <Vince Huston, DO - Last Filed: 09/03/18 21:08> Lab Data Lab Results 09/03/18 09/03/18 Range/Units 20:11 20:11 WBC 8.1 (4.5-11.0) X10^3/uL RBC 4.49 (4.0-5.2) X10^6/uL Hgb 14.7 (12.0-16.0) g/dL Hct 43.4 (36-46) % MCV 96.6 (80-100) fL MCH 32.8 (26-34) PG MCHC 33.9 (30-36) % RDW 12.9 (11.6-14.8) % Plt Count 206 (150-400) X10^3/uL Neut % (Auto) 56.0 (50-75) % Lymph % (Auto) 34.8 (25-40) % [place] % (Auto) 6.6 (3-14) % Eos % (Auto) 1.9 L (2-4) % Baso % (Auto) 0.7 (0-2) % Neut # (Auto) 4500 (3273-2720) /uL Sodium 141 (137-145) mmol/L Potassium 3.8 (3.4-5.1) mmol/L Chloride 103 (98-107) mmol/L Carbon Dioxide 29 (22-32) mmol/L BUN 13 (7-17) mg/dL Creatinine 0.60 (0.52-1.04) mg/dL Estimated GFR > 60.0 (>60) mL/min BUN/Creatinine Ratio 21.7 (6-22) Glucose 99 (70-100) mg/dL Calcium 9.0 (8.4-10.2) mg/dL Total Bilirubin 0.3 (0.2-1.3) mg/dL AST 25 (14-36) IU/L ALT 27 (9-52) IU/L Alkaline Phosphatase 79 (38-126) U/L Total Protein 7.3 (6.3-8.2) g/dL Albumin 4.1 (3.5-5.0) g/dL Globulin 3.2 (1.7-4.1) g/dL Albumin/Globulin Ratio 1.3 (1.0-2.8) Point of care testing: Point of Care Testing Test Results Negative Urine Dip Bedside Urine Glucose Negative Bedside Urine Bilirubin - Negative Bedside Urine Ketone - Negative Urine Specific [place] 1.025 Bedside Urine Occult Blood - Negative Bedside Urine pH 6.0 Bedside Urine Protein - Negative Bedside Urine Urobilinogen - Negative Bedside Urine Nitrite - Negative Bedside Urine Leukocytes - Negative Esterase Discharge Plan Departure Patient Disposition: Home Clinical Impression: Abdominal pain Instructions: DI for Abdominal Pain-Adult Activity Restrictions/Additional Instructions: Please follow-up with her primary care provider as we discussed. Please monitor for fever, inability keep down fluids or any acute concerns. Please come back to the emergency department if necessary. Please eat a simple diet, push clear fluids and rest. Prescriptions: No Action Lactobacillus acidophilus capsule 100 mg PO DAILY RF: 0 norethindrone (contraceptive) [Deblitane] 0.35 mg tablet 0.35 mg PO DAILY RF: 0 Referrals: Araceli Castaneda MD [Primary Care Provider] - <Vince Huston DO - Last Filed: 09/03/18 21:08> Cosign ED Attending Jeovany Attestation: I was available for consultation during this patient's emergency department encounter
[2018-09-03 21:01] VITALS: BP 125/72; PULSE 65; RESP 15; O2SAT 100
== END 2018-09-03 21:15 | disposition home or self-care (01) ==
PROVIDERS: Emergency Provider Nurse Practitioner Family; PCP Family Medicine
DX: R10.9 Unspecified abdominal pain (principal)
CPT/HCPCS: 76830; 76856; 80053; 81003; 81025; 85025; 96372; 99282; 99284; J1885

== ENCOUNTER → 2018-10-06 12:54 | Outpatient (CLI) | payer OTHER, MEDICAID, SELFPAY ==
[2018-10-06 13:25] LABS: Add Manual Diff / Slide Review NO; Basophils Percent Auto 0.5 % (0-2); Eosinophils Percent Auto 2.2 % (2-4); Hematocrit 44.6 % (36-46); Hemoglobin 15.6 g/dL (12.0-16.0); Lymphocytes Percent Auto 26.6 % (25-40); Mean Corpuscular Hemoglobin 33.2 PG (26-34); Mean Corpuscular Volume 94.8 fL (80-100); Monocytes Percent Auto 9.6 % (3-14); Neutrophils Absolute Auto 5600 /uL (1500-7000); Neutrophils Percent Auto 61.1 % (50-75); Platelet Count 200 X10^3/uL (150-400); Red Cell Distribution Width 12.6 % (11.6-14.8); White Blood Cell Count 9.1 X10^3/uL (4.5-11.0)
[2018-10-06 13:34] LABS: C-Reactive Protein Quant 2.3 mg/dL (<1.0)
[2018-10-06 18:47] LABS: D Dimer < 200 ng/mL (<230)
== END ==
PROVIDERS: PCP Family Medicine; Visit Provider Physician Assistant
DX: R06.02 Shortness of breath (principal)
CPT/HCPCS: 85025; 85379; 86140

== ENCOUNTER 2018-10-11 06:06 | Day surgery (SDC) | payer OTHER, MEDICAID, SELFPAY ==
[2018-10-09 12:32] VITALS: BMI 37.5
[2018-10-11] VITALS (7 sets, daily range): BP systolic 105–121; BP diastolic 60–84; PULSE 82–98; RESP 8–16; TEMP 36–36.6; O2SAT 88–98; BMI 37.5
[2018-10-11] MEDS: LACTATED RINGERS 1,000 ML 100 ML IV ×2 (07:00→08:45)
--- NOTE | 2018-10-11 07:44 | PM.PREOP ---
Pre-operative Note Interval Note History & Physical reviewed/Exam performed by Physician: Yes Changes to H&P: No
--- NOTE | 2018-10-11 07:44 | PM.HP.1 ---
History of Present Illness Date Patient Seen: 10/11/18 Time Patient Seen: 07:44 Chief complaint: [id number] BTL Narrative: Patient is a 27-year-old here for laparoscopic bilateral tubal ligation, possible fulguration of endometriosis, and excision of ovarian cysts Patient History Medical History History of use of contraceptive intrauterine device (IUD) (Acute) Kidney stone (Acute) Vaginal delivery (Resolved 2013) Surgical History History of appendectomy (Acute ~2008) Family & Social History Social History: household members spouse,family lives independently Yes caregiver/support person No Tobacco & Substance use: Smoking Status Never smoker alcohol intake current alcohol intake frequency 0-2 drinks per day Substance Use Type does not use Meds Home Medications Medication Instructions Recorded Confirmed Type Lactobacillus acidophilus capsule 100 mg PO DAILY 02/13/18 10/11/18 History norethindrone (contraceptive) 0.35 mg PO DAILY 09/03/18 10/11/18 History [Deblitane] ibuprofen 600 mg PO TID PRN MDD 2400 10/11/18 10/11/18 History Allergies Allergy/AdvReac Type Severity Reaction Status Date / Time hydromorphone [From DILAUDID] AdvReac Unknown DIZZINESS Verified 10/11/18 06:59 Exam Vital Signs (past 8 hours): - 10/11/18 06:50 Temperature 97.8 F Pulse Rate 86 Respiratory Rate 16 Blood Pressure 120/70 Pulse Oximetry 96 Oxygen Delivery Method Room Air Narrative Exam Narrative: HEENT: No thyromegaly, no anterior cervical or supraclavicular lymphadenopathy. Lungs:Clear to auscultation bilaterally, no wheezes. Cardiovascular: Regular rate and rhythm, no murmurs, rubs, or gallops. Abdomen: Well-healed laparoscopy scars. No hepatosplenomegaly. No masses palpable. External genitalia: Normal Vagina: Normal Cervix: Normal Bimanual exam: 7 Week size uterus. Mobile. Rectal: No masses. Assessment & Plan (1) Pelvic pain in female: Current visit: Yes Status: Acute (2) Sterilization: Current visit: Yes Status: Acute (3) Ovarian cyst: Current visit: Yes Status: Acute Plan: Assessment/Plan Narrative: Assessment: 27-year-old with pelvic pain, bilateral ovarian cysts, and desires permanent sterilization Plan: Laparoscopic bilateral tubal ligation with electrocautery, possible fulguration of endometriosis, excision of ovarian cysts The risks, benefits, and alternatives to the procedure were explained to the patient. The risks including bleeding, infection, injury to the bowel, bladder, or ureters. She understands these risks and agrees to proceed. A full PAR-Q was held and consent form was signed.
--- NOTE | 2018-10-11 07:47 | P.HP_ITS ---
History of Present Illness Date Patient Seen: 10/11/18 Time Patient Seen: 07:44 Chief complaint: [id number] BTL Narrative: Patient is a 27-year-old here for laparoscopic bilateral tubal ligation, possible fulguration of endometriosis, and excision of ovarian cysts Patient History Medical History History of use of contraceptive intrauterine device (IUD) (Acute) Kidney stone (Acute) Vaginal delivery (Resolved 2013) Surgical History History of appendectomy (Acute ~2008) Family & Social History Social History: household members spouse,family lives independently Yes caregiver/support person No Tobacco & Substance use: Smoking Status Never smoker alcohol intake current alcohol intake frequency 0-2 drinks per day Substance Use Type does not use Meds Home Medications Medication Instructions Recorded Confirmed Type Lactobacillus acidophilus capsule 100 mg PO DAILY 02/13/18 10/11/18 History norethindrone (contraceptive) 0.35 mg PO DAILY 09/03/18 10/11/18 History [Deblitane] ibuprofen 600 mg PO TID PRN MDD 2400 10/11/18 10/11/18 History Allergies Allergy/AdvReac Type Severity Reaction Status Date / Time hydromorphone [From DILAUDID] AdvReac Unknown DIZZINESS Verified 10/11/18 06:59 Exam Vital Signs (past 8 hours): - 10/11/18 06:50 Temperature 97.8 F Pulse Rate 86 Respiratory Rate 16 Blood Pressure 120/70 Pulse Oximetry 96 Oxygen Delivery Method Room Air Narrative Exam Narrative: HEENT: No thyromegaly, no anterior cervical or supraclavicular lymphadenopathy. Lungs:Clear to auscultation bilaterally, no wheezes. Cardiovascular: Regular rate and rhythm, no murmurs, rubs, or gallops. Abdomen: Well-healed laparoscopy scars. No hepatosplenomegaly. No masses palpable. External genitalia: Normal Vagina: Normal Cervix: Normal Bimanual exam: 7 Week size uterus. Mobile. Rectal: No masses. Assessment & Plan (1) Pelvic pain in female: Current visit: Yes Status: Acute (2) Sterilization: Current visit: Yes Status: Acute (3) Ovarian cyst: Current visit: Yes Status: Acute Plan: Assessment/Plan Narrative: Assessment: 27-year-old with pelvic pain, bilateral ovarian cysts, and desires permanent sterilization Plan: Laparoscopic bilateral tubal ligation with electrocautery, possible fulguration of endometriosis, excision of ovarian cysts The risks, benefits, and alternatives to the procedure were explained to the patient. The risks including bleeding, infection, injury to the bowel, bladder , or ureters. She understands these risks and agrees to proceed. A full PAR-Q was held and consent form was signed.
--- NOTE | 2018-10-11 08:23 | SUR.OPER ---
Lithotomy on padded OR bed, head on pillow, right arm secured on padded arm board at <90 degrees abduction, left arm padded and tucked. Legs secured in padded yellow fins stirrups.
--- NOTE | 2018-10-11 08:28 | PM.GYNOP.1 ---
Operative Date/Time/Diagnoses Date of procedure: 10/11/18 Time of procedure: 08:28 Pre-op diagnosis: Desires permanent sterilization Pelvic pain Ovarian cyst Post-op diagnosis: same Procedure: Procedures Operation Date: 10/11/18 07:45 <No data on this case meets the specified criteria> Indications: Pelvic pain Desires permanent sterilization Ovarian cyst Anesthesia Type: General Operative Notes Findings: 6 week size anteverted uterus Normal tubes and ovaries No ovarian cyst Appendix absent Normal liver and gallbladder No evidence of adhesions or endometriosis Closure Type: primary Specimen(s): none Estimated blood loss (mL): 5 Blood products transfused: none Procedure in detail: After informed consent was obtained, the patient was taken to the operating room where she was placed in the dorsal supine position. After adequate general endotracheal anesthesia was achieved, she was placed in the dorsal lithotomy position, and prepped and draped in the usual sterile fashion. A time-out was performed. A bivalve speculum was placed into the vagina and the anterior lip of the cervix grasped with a single-tooth tenaculum. Cervical os was sequentially dilated until the Zumi uterine manipulator could pass easily into the endometrial cavity. The single-tooth tenaculum was removed from the anterior lip of the cervix. The bivalve speculum was removed from the vagina. Attention was then turned to the abdomen where 6 cc of 0.5% Marcaine with epinephrine were injected in the umbilical fold. A 5 mm incision was made. The Veress needle was placed into the peritoneal cavity, and its placement was confirmed by aspiration drop test. The abdominal cavity was insufflated with 3.4 L of CO2. The Veress needle was removed, and a 5 mm trocar was placed without difficulty. Initial inspection of the pelvis and abdomen revealed the findings noted above. A 2nd incision was made just above the pubic symphysis after 6 cc of 0.5% Marcaine with epinephrine were injected. A 2nd 5 mm trocar was placed under direct visualization. Using the probe the tubes and ovaries were examined and were normal. No evidence of endometriosis in the anterior posterior cul-de-sac, or bilateral ovarian fossa. Using the PlasmaKinetic with settings of 40 w, the tubes were cauterized x3 and then cut in the middle. Hemostasis was achieved. The instruments were removed from the abdomen. The CO2 was allowed to escape. The incisions were repaired with 4 0 undyed Vicryl in a subcuticular fashion. Steri-Strips, 2 x 2, and op site were placed. The Zumi uterine manipulator was removed from the uterus. Sponge, lap, and instrument counts were correct x2. The patient tolerated the procedure well, and was taken to PACU in stable condition. Complications: none Post-operative Condition: stable Disposition: PACU Plan for aftercare: Home after recovery
[2018-10-11] MEDS: fentaNYL 100 MCG/2 ML INJ 50 MCG IV ×2 (08:41→08:50)
--- NOTE | 2018-10-11 08:43 | PM.PREOP ---
Pre-operative Note Interval Note History & Physical reviewed/Exam performed by Physician: Yes Changes to H&P: No
[2018-10-11] MEDS: BUPIVACAINE 0.5% W/ EPI (PF) VIAL 30 ML INJ (08:52)
[2018-10-11] MEDS: OXYCODONE/ACETAMINOPHEN 5/325 TABLET 1 TAB PO (09:13)
--- NOTE | 2018-10-14 10:58 | SUR.PHASEII ---
pt returned post op phone call- all wnl- has not set up follow up appt but will call today
== END 2018-10-11 09:40 | disposition home or self-care (01) ==
PROVIDERS: PCP Family Medicine; Visit Provider Obstetrics & Gynecology
PROC: (CPT 58671; principal; 2018-10-11 07:45)
DX: Z30.2 Encounter for sterilization (principal); R10.2 Pelvic and perineal pain
CPT/HCPCS: 58670; J0330; J1100; J2250; J2405; J2704; J3010

== ENCOUNTER 2020-12-21 04:15 | Day surgery (SDC) | payer OTHER, MEDICAID, SELFPAY ==
[2020-12-21] VITALS (28 sets, daily range): BP systolic 95–150; BP diastolic 35–86; PULSE 49–588; RESP 10–26; TEMP 36.3–37.3; O2SAT 94–100; BMI 28.1
--- NOTE | 2020-12-21 04:26 | ED_ITS ---
HPI - Abdominal Pain <Aashish Webber DO - Last Filed: 12/21/20 22:32> General Chief Complaint: Abdominal Pain Stated Complaint: acute abd pain, diff breathing had covid shot 3 dy Time Seen by Provider: 12/21/20 04:17 Source: patient and family Mode of arrival: Ambulatory Limitations: no limitations History of Present Illness HPI narrative: 30-year-old female nonsmoker presents with her significant other and a chief complaint of severe pelvic pain which has been gradually worsening over the past 2 hours. She was engaged in sexual intercourse just prior to pain starting, she had been resting briefly when her pain started. She states that it is worsening over the past 2 hours and is largely constant but seems to have waves of more intense pain. She states her pain is worse when she moves and improves with rest. She states it is sharp, stabbing cramping. At its most intense it is 9/10. She denies any radiation of her discomfort. She has had nausea but denies any vomiting. She denies any change in bowel habits such as constipation or diarrhea. She denies dysuria, frequency or urgency. She denies runny nose, sore throat, cough or exposure to persons known to have COVID. She denies vaginal bleeding or discharge. Normal BM earlier in the day MD complaint: abdominal pain Onset (ago): hour(s) Pain Consistency: constant and intermittent Location: suprapubic Severity: severe Severity scale (1-10): 9 Quality: cramping and stabbing Migration to: no migration Relieving factors: rest Exacerbating factors: movement Associated symptoms: nausea Related Data Home Medications Medication Instructions Recorded Confirmed ibuprofen 600 mg PO TID PRN MDD 2400 10/11/18 12/21/20 Previous Rx's Medication Instructions Recorded oxycodone 5 mg PO Q4H PRN #20 tab 12/21/20 Allergies Allergy/AdvReac Type Severity Reaction Status Date / Time chocolate flavor Allergy Severe Anaphylaxis Verified 12/21/20 07:01 prednisone Allergy Intermediate ITCHING Verified 12/21/20 07:01 hydromorphone [From DILAUDID] AdvReac Unknown DIZZINESS Verified 09/16/19 12:55 Review of Systems <Aashish Webber DO - Last Filed: 12/21/20 22:32> Review of Systems ROS Unobtainable: All systems reviewed & are unremarkable except as noted in HPI and below Constitutional Constitutional: Denies chills, Denies fatigue, Denies fever(s), Denies frequent falls, Denies lethargy and Denies weakness Eyes Eyes: Denies change in vision, Denies eye discharge, Denies irritation and Denies loss of vision ENT Ears, Nose, Mouth, and Throat: Denies change in voice, Denies dizziness, Denies neck pain, Denies sore throat and Denies throat swelling Cardiovascular Cardiovascular: Denies chest pain, Denies irregular heart rhythm, Denies lightheadedness, Denies palpitations, Denies dyspnea, Denies dyspnea on exertion and Denies orthopnea Respiratory Respiratory: Denies cough, Denies dyspnea, Denies dyspnea on exertion and Denies wheezing Gastrointestinal Gastrointestinal: Denies abdominal pain, Denies change in bowel habits, Denies diarrhea, Denies nausea and Denies vomiting Genitourinary Genitourinary: Reports pelvic pain Musculoskeletal Musculoskeletal: Denies neck pain and Denies numbness Integumentary/Breasts Skin/Breast: Denies pruritus, Denies erythema, Denies rash and Denies wounds Neurologic Neurologic: Denies behavioral changes, Denies confusion, Denies dizziness, Denies frequent falls, Denies loss of vision, Denies numbness and Denies weakness Psychiatric Psychiatric: Denies anxiety, Denies behavioral changes, Denies confusion, Denies depression, Denies homicidal ideation and Denies suicidal ideation Endocrine Endocrine: Denies fatigue, Denies flushing and Denies palpitations Hematologic/Lymphatic Hematologic/Lymphatic: Denies easy bruising Allergic/Immunologic Allergic/Immunologic: Denies urticaria, Denies throat swelling and Denies wheezing Patient History <Aashish Webber DO - Last Filed: 12/21/20 22:32> Medical History (Updated 12/21/20 @ 09:25 by Krissy Mejía DO) History of use of contraceptive intrauterine device (IUD) Kidney stone Vaginal delivery (2013) Surgical History History of appendectomy (~2008) S/P tubal ligation S/P tubal ligation Family History Grandmother Cancer Mother Cancer Family/Other Cancer Social History marital status: number of children: 1 household members: spouse and family lives independently: Yes caregiver/support person: No housing: house occupational status: employed Smoking Status: Never smoker alcohol intake: never substance use type: does not use Smoking Status: Never smoker alcohol intake frequency: 0-2 drinks per day Substance Use Type: does not use Exam <Aashish Webber DO - Last Filed: 12/21/20 22:32> Narrative Exam Narrative: GENERAL: [30] year old patient appears stated age. Well- nourished, well-developed patient, in obvious distress, crying, clutching her abdomen and rolling on the cart. HEAD: Atraumatic. Normocephalic. EYES: Pupils equal round and reactive. Extraocular motions intact. No scleral icterus. No injection or drainage. ENT: Nose without bleeding, purulent drainage. Throat without erythema, tonsillar hypertrophy or exudate. Airway patent. NECK: Trachea midline. Non tender CARDIOVASCULAR: Regular rate and rhythm without murmurs, gallops, or rubs. RESPIRATORY: Clear to auscultation. Breath sounds equal bilaterally. No wheezes, rales, or rhonchi. GASTROINTESTINAL: Abdomen soft, tender in the suprapubic region, nondistended. Normal soft, bowel sounds present EXTREMITIES: No edema or joint tenderness. BACK: Nontender without deformity or crepitance. No flank tenderness. NEURO: AOx3. SKIN: No rash or erythema of visible areas Initial Vital Signs Initial Vital Signs: Vital Signs Temperature 99.1 F 12/21/20 04:24 Pulse Rate 81 12/21/20 04:24 Respiratory Rate 26 H 12/21/20 04:24 Blood Pressure 150/86 H 12/21/20 04:24 Pulse Oximetry 99 12/21/20 04:24 <Krissy Mejía DO - Last Filed: 12/21/20 09:25> Initial Vital Signs Initial Vital Signs: Vital Signs Temperature 99.1 F 12/21/20 04:24 Pulse Rate 81 12/21/20 04:24 Respiratory Rate 26 H 12/21/20 04:24 Blood Pressure 150/86 H 12/21/20 04:24 Pulse Oximetry 99 12/21/20 04:24 Course <Aashish Webber DO - Last Filed: 12/21/20 22:32> Course Course Narrative: 0730 - signout to Dr. Mejía for final dispo. Awaiting Dr. Pascal to see at bedside in ED Orders Ordered: Discontinued Medications Bupivacaine HCl/Epinephrine Bitart (Bupivacaine 0.5% W/ Epi (Pf) 30 Ml Vial) 30 ml INJ NOW ONE Stop: 12/21/20 10:19 Last Admin: 12/21/20 10:18 Dose: 15 ml Documented by: TRE Fentanyl (Fentanyl 100 Mcg/2 Ml Inj) 0 mcg IV Q5M PRN PRN Reason: Pain, Moderate (4-6) Last Admin: 12/21/20 11:09 Dose: 50 mcg Documented by: Admin: 12/21/20 10:44 Dose: 50 mcg Documented by: CHIO Sodium Chloride (Normal Saline 0.9%) 1,000 mls @ 1,000 mls/hr IV BOLUS ONE Stop: 12/21/20 05:22 Last Infusion: 12/21/20 06:04 Dose: 0 mls/hr Documented by: Admin: 12/21/20 04:28 Dose: 1,000 mls/hr Documented by: NEHEMIAH Lactated Ringer's (Lactated Ringers) 1,000 mls @ 100 mls/hr IV CONT ZACK Last Infusion: 12/21/20 12:15 Dose: 0 mls/hr Documented by: Admin: 12/21/20 09:35 Dose: 100 mls/hr Documented by: DAVID Lactated Ringer's (Lactated Ringers) 1,000 mls @ 42 mls/hr IV CONT ZACK Lactated Ringer's (Lactated Ringers) 500 mls @ 1,000 mls/hr IV BOLUS ONE Stop: 12/21/20 14:54 Last Admin: 12/21/20 14:37 Dose: 1,000 mls/hr Documented by: DAVID Ketorolac Tromethamine (Ketorolac 60 Mg/2 Ml Vial) 15 mg IV NOW ONE Stop: 12/21/20 05:32 Last Admin: 12/21/20 05:34 Dose: 15 mg Documented by: CHEN Ketorolac Tromethamine (Ketorolac 30 Mg/Ml Vial) 30 mg IV NOW PRN PRN Reason: Pain, Mild (1-3) Last Admin: 12/21/20 10:54 Dose: 30 mg Documented by: CHIO Lorazepam (Lorazepam 2 Mg/Ml Inj) 0.5 mg IV NOW PRN PRN Reason: Anxiety Last Admin: 12/21/20 10:55 Dose: 0.5 mg Documented by: CHIO Meperidine HCl (Meperidine 50 Mg/Ml Inj) 12.5 mg IV PACUNOW PRN PRN Reason: Mild pain or shivering Metoclopramide HCl (Metoclopramide 10 Mg/2 Ml Inj) 10 mg IV NOW PRN PRN Reason: Nausea And Vomiting Metoclopramide HCl (Metoclopramide 10 Mg/2 Ml Inj) 10 mg IV NOW ONE Stop: 12/21/20 14:26 Last Admin: 12/21/20 14:36 Dose: 10 mg Documented by: DAVID Morphine Sulfate (Morphine 4 Mg/Ml Inj) 4 mg IV NOW ONE Stop: 12/21/20 04:24 Last Admin: 12/21/20 04:29 Dose: 4 mg Documented by: NEHEMIAH Morphine Sulfate (Morphine 4 Mg/Ml Inj) 4 mg IV NOW ONE Stop: 12/21/20 04:42 Last Admin: 12/21/20 04:48 Dose: 4 mg Documented by: CHEN Morphine Sulfate (Morphine 4 Mg/Ml Inj) 6.5 mg 0.1 mg/kg (6.5 mg) IV NOW ONE Stop: 12/21/20 05:22 Last Admin: 12/21/20 05:34 Dose: 6.5 mg Documented by: CHEN Morphine Sulfate (Morphine 4 Mg/Ml Inj) 4 mg IV NOW ONE Stop: 12/21/20 08:12 Last Admin: 12/21/20 08:15 Dose: 4 mg Documented by: KEELEY Ondansetron HCl (Ondansetron 4 Mg/2 Ml Inj) 4 mg IV Q4HR PRN PRN Reason: Nausea And Vomiting Last Admin: 12/21/20 04:28 Dose: 4 mg Documented by: NEHEMIAH Ondansetron HCl (Ondansetron 4 Mg Odt) 4 mg PO NOW ONE Stop: 12/21/20 13:31 Last Admin: 12/21/20 13:36 Dose: 4 mg Documented by: ARIEL Oxycodone/Acetaminophen (Oxycodone/Acetaminophen 5/325 Tablet) 1 tab PO Q4HR PRN PRN Reason: Pain, Moderate (4-6) Last Admin: 12/21/20 11:21 Dose: 1 tab Documented by: CHIO Reevaluation(s) Reevaluation #1: patient has minimal relief after multiple rounds of Morphine Reevaluation #2: patient certainly more comfortable after toradol, becomes dizzy when sitting up and increased pain while moving Consultations Consultation #1: call to Dr. Pascal (resource technician). Requests pelvic exam and discussion with Gen Surgery regarding inflammation of mesentary.She will come see patient in ED Consultation #2: Dr. Ziegler (Gen Surg). Unlikely significant or surgical finding regarding inflammation, very nonspecific. Vital Signs Vital signs: Vital Signs - 8 hr 12/21/20 15:10 Temperature 97.8 F Pulse Rate 58 L Respiratory Rate 16 Blood Pressure 113/64 Pulse Oximetry 100 <Krissy Mejía DO - Last Filed: 12/21/20 09:25> Orders Ordered: Discontinued Medications Bupivacaine HCl/Epinephrine Bitart (Bupivacaine 0.5% W/ Epi (Pf) 30 Ml Vial) 30 ml INJ NOW ONE Stop: 12/21/20 10:19 Last Admin: 12/21/20 10:18 Dose: 15 ml Documented by: TRE Fentanyl (Fentanyl 100 Mcg/2 Ml Inj) 0 mcg IV Q5M PRN PRN Reason: Pain, Moderate (4-6) Last Admin: 12/21/20 11:09 Dose: 50 mcg Documented by: Admin: 12/21/20 10:44 Dose: 50 mcg Documented by: CHIO Sodium Chloride (Normal Saline 0.9%) 1,000 mls @ 1,000 mls/hr IV BOLUS ONE Stop: 12/21/20 05:22 Last Infusion: 12/21/20 06:04 Dose: 0 mls/hr Documented by: Admin: 12/21/20 04:28 Dose: 1,000 mls/hr Documented by: NEHEMIAH Lactated Ringer's (Lactated Ringers) 1,000 mls @ 100 mls/hr IV CONT ZACK Last Infusion: 12/21/20 12:15 Dose: 0 mls/hr Documented by: Admin: 12/21/20 09:35 Dose: 100 mls/hr Documented by: DAVID Lactated Ringer's (Lactated Ringers) 1,000 mls @ 42 mls/hr IV CONT ZACK Lactated Ringer's (Lactated Ringers) 500 mls @ 1,000 mls/hr IV BOLUS ONE Stop: 12/21/20 14:54 Last Admin: 12/21/20 14:37 Dose: 1,000 mls/hr Documented by: DAVID Ketorolac Tromethamine (Ketorolac 60 Mg/2 Ml Vial) 15 mg IV NOW ONE Stop: 12/21/20 05:32 Last Admin: 12/21/20 05:34 Dose: 15 mg Documented by: CHEN Ketorolac Tromethamine (Ketorolac 30 Mg/Ml Vial) 30 mg IV NOW PRN PRN Reason: Pain, Mild (1-3) Last Admin: 12/21/20 10:54 Dose: 30 mg Documented by: CHIO Lorazepam (Lorazepam 2 Mg/Ml Inj) 0.5 mg IV NOW PRN PRN Reason: Anxiety Last Admin: 12/21/20 10:55 Dose: 0.5 mg Documented by: CHIO Meperidine HCl (Meperidine 50 Mg/Ml Inj) 12.5 mg IV PACUNOW PRN PRN Reason: Mild pain or shivering Metoclopramide HCl (Metoclopramide 10 Mg/2 Ml Inj) 10 mg IV NOW PRN PRN Reason: Nausea And Vomiting Metoclopramide HCl (Metoclopramide 10 Mg/2 Ml Inj) 10 mg IV NOW ONE Stop: 12/21/20 14:26 Last Admin: 12/21/20 14:36 Dose: 10 mg Documented by: DAVID Morphine Sulfate (Morphine 4 Mg/Ml Inj) 4 mg IV NOW ONE Stop: 12/21/20 04:24 Last Admin: 12/21/20 04:29 Dose: 4 mg Documented by: NEHEMIAH Morphine Sulfate (Morphine 4 Mg/Ml Inj) 4 mg IV NOW ONE Stop: 12/21/20 04:42 Last Admin: 12/21/20 04:48 Dose: 4 mg Documented by: CHEN Morphine Sulfate (Morphine 4 Mg/Ml Inj) 6.5 mg 0.1 mg/kg (6.5 mg) IV NOW ONE Stop: 12/21/20 05:22 Last Admin: 12/21/20 05:34 Dose: 6.5 mg Documented by: CHEN Morphine Sulfate (Morphine 4 Mg/Ml Inj) 4 mg IV NOW ONE Stop: 12/21/20 08:12 Last Admin: 12/21/20 08:15 Dose: 4 mg Documented by: KEELEY Ondansetron HCl (Ondansetron 4 Mg/2 Ml Inj) 4 mg IV Q4HR PRN PRN Reason: Nausea And Vomiting Last Admin: 12/21/20 04:28 Dose: 4 mg Documented by: NEHEMIAH Ondansetron HCl (Ondansetron 4 Mg Odt) 4 mg PO NOW ONE Stop: 12/21/20 13:31 Last Admin: 12/21/20 13:36 Dose: 4 mg Documented by: ARIEL Oxycodone/Acetaminophen (Oxycodone/Acetaminophen 5/325 Tablet) 1 tab PO Q4HR PRN PRN Reason: Pain, Moderate (4-6) Last Admin: 12/21/20 11:21 Dose: 1 tab Documented by: CHIO Vital Signs Vital signs: Vital Signs - 8 hr 12/21/20 15:10 Temperature 97.8 F Pulse Rate 58 L Respiratory Rate 16 Blood Pressure 113/64 Pulse Oximetry 100 MDM - Abdominal Pain <Aashish Webber DO - Last Filed: 12/21/20 22:32> Lab Data Result diagrams: 12/21/20 06:00 12/21/20 04:25 Labs: Lab Results 12/21/20 12/21/20 12/21/20 Range/Units 04:25 04:25 04:25 WBC 7.1 (4.5-11.0) X10^3/uL RBC 4.32 (4.0-5.2) X10^6/uL Hgb 14.3 (12.0-16.0) g/dL Hct 42.6 (36-46) % MCV 98.4 (80-100) fL MCH 33.1 (26-34) PG MCHC 33.6 (30-36) % RDW 13.1 (11.6-14.8) % Plt Count 179 (150-400) X10^3/uL Neut % (Auto) Not Reportable Lymph % (Auto) Not Reportable [place] % (Auto) Not Reportable Eos % (Auto) Not Reportable Baso % (Auto) Not Reportable Lymph # (Auto) Not Reportable [place] # (Auto) Not Reportable Baso # (Auto) Not Reportable Total Counted 100 Seg Neutrophils % 45.0 (38-70) % Band Neutrophils % 3.0 (3-7) % Lymphocytes % (Manual) 41.0 (25-45) % Atypical Lymphs % 4.0 H ( - 0) % Monocytes % (Manual) 3.0 (2-11) % Eosinophils % (Manual) 3.0 (2-4) % Basophils % (Manual) 1.0 (0-1) % Neutrophils # (Manual) 3408 (1838-3410) /uL RBC Morphology Normal morphology Sodium 138 (137-145) mmol/L Potassium 4.2 (3.4-5.1) mmol/L Chloride 105 (98-107) mmol/L Carbon Dioxide 27 (22-32) mmol/L BUN 12 (7-17) mg/dL Creatinine 0.53 (0.52-1.04) mg/dL Estimated GFR > 60.0 (>60) mL/min BUN/Creatinine Ratio 22.6 H (6-22) Glucose 97 (70-100) mg/dL Calcium 9.7 (8.4-10.2) mg/dL Total Bilirubin 0.3 (0.2-1.3) mg/dL AST 26 (14-36) IU/L ALT 15 (<35) IU/L Alkaline Phosphatase 72 (38-126) U/L Total Protein 7.6 (6.3-8.2) g/dL Albumin 4.3 (3.5-5.0) g/dL Globulin 3.3 (1.7-4.1) g/dL Albumin/Globulin Ratio 1.3 (1.0-2.8) Serum , Qual Negative (Negative) SARS-CoV-2 (PCR) (Negative) Blood Type Antibody Screen 12/21/20 12/21/20 12/21/20 Range/Units 06:00 07:29 08:28 WBC (4.5-11.0) X10^3/uL RBC (4.0-5.2) X10^6/uL Hgb 12.6 (12.0-16.0) g/dL Hct 36.6 (36-46) % MCV (80-100) fL MCH (26-34) PG MCHC (30-36) % RDW (11.6-14.8) % Plt Count (150-400) X10^3/uL Neut % (Auto) Lymph % (Auto) [place] % (Auto) Eos % (Auto) Baso % (Auto) Lymph # (Auto) [place] # (Auto) Baso # (Auto) Total Counted Seg Neutrophils % (38-70) % Band Neutrophils % (3-7) % Lymphocytes % (Manual) (25-45) % Atypical Lymphs % ( - 0) % Monocytes % (Manual) (2-11) % Eosinophils % (Manual) (2-4) % Basophils % (Manual) (0-1) % Neutrophils # (Manual) (1894-6914) /uL RBC Morphology Sodium (137-145) mmol/L Potassium (3.4-5.1) mmol/L Chloride (98-107) mmol/L Carbon Dioxide (22-32) mmol/L BUN (7-17) mg/dL Creatinine (0.52-1.04) mg/dL Estimated GFR (>60) mL/min BUN/Creatinine Ratio (6-22) Glucose (70-100) mg/dL Calcium (8.4-10.2) mg/dL Total Bilirubin (0.2-1.3) mg/dL AST (14-36) IU/L ALT (<35) IU/L Alkaline Phosphatase (38-126) U/L Total Protein (6.3-8.2) g/dL Albumin (3.5-5.0) g/dL Globulin (1.7-4.1) g/dL Albumin/Globulin Ratio (1.0-2.8) Serum , Qual (Negative) SARS-CoV-2 (PCR) Negative (Negative) Blood Type O Positive Antibody Screen Negative Point of care testing: Urine Dip Bedside Urine Glucose Negative Bedside Urine Bilirubin - Negative Bedside Urine Ketone - Negative Urine Specific [place] 1.015 Bedside Urine Occult Blood - Negative Bedside Urine pH 8.0 Bedside Urine Protein - Negative Bedside Urine Urobilinogen - Negative Bedside Urine Nitrite - Negative Bedside Urine Leukocytes - Negative Esterase Imaging Data CT scan - abdomen/pelvis: Radiologist's Impression: 1. Moderate of dense fluid in pelvis and R paracolic gutter. May be from ruptured hemorragic cyst, there is corpus luteum in L ovary 2. Mild colonic wall thickening of the sigmoid colon. Jacqueline colonic inflammatory changes involving the mesentery. Normal distension of the urinary bladder, but air is noted within the lumen. If this is not iatrogenic from recent instrumentation cannot exclude vesicular-enteric fistula. 3. Post appendectomy clips. FEcal retention/constipation <Krissy Mejía, DO - Last Filed: 12/21/20 09:25> Lab Data Attestation: I reviewed the patient's lab results. Labs: Lab Results 12/21/20 12/21/20 12/21/20 Range/Units 04:25 04:25 04:25 WBC 7.1 (4.5-11.0) X10^3/uL RBC 4.32 (4.0-5.2) X10^6/uL Hgb 14.3 (12.0-16.0) g/dL Hct 42.6 (36-46) % MCV 98.4 (80-100) fL MCH 33.1 (26-34) PG MCHC 33.6 (30-36) % RDW 13.1 (11.6-14.8) % Plt Count 179 (150-400) X10^3/uL Neut % (Auto) Not Reportable Lymph % (Auto) Not Reportable [place] % (Auto) Not Reportable Eos % (Auto) Not Reportable Baso % (Auto) Not Reportable Lymph # (Auto) Not Reportable [place] # (Auto) Not Reportable Baso # (Auto) Not Reportable Total Counted 100 Seg Neutrophils % 45.0 (38-70) % Band Neutrophils % 3.0 (3-7) % Lymphocytes % (Manual) 41.0 (25-45) % Atypical Lymphs % 4.0 H ( - 0) % Monocytes % (Manual) 3.0 (2-11) % Eosinophils % (Manual) 3.0 (2-4) % Basophils % (Manual) 1.0 (0-1) % Neutrophils # (Manual) 3408 (6277-0527) /uL RBC Morphology Normal morphology Sodium 138 (137-145) mmol/L Potassium 4.2 (3.4-5.1) mmol/L Chloride 105 (98-107) mmol/L Carbon Dioxide 27 (22-32) mmol/L BUN 12 (7-17) mg/dL Creatinine 0.53 (0.52-1.04) mg/dL Estimated GFR > 60.0 (>60) mL/min BUN/Creatinine Ratio 22.6 H (6-22) Glucose 97 (70-100) mg/dL Calcium 9.7 (8.4-10.2) mg/dL Total Bilirubin 0.3 (0.2-1.3) mg/dL AST 26 (14-36) IU/L ALT 15 (<35) IU/L Alkaline Phosphatase 72 (38-126) U/L Total Protein 7.6 (6.3-8.2) g/dL Albumin 4.3 (3.5-5.0) g/dL Globulin 3.3 (1.7-4.1) g/dL Albumin/Globulin Ratio 1.3 (1.0-2.8) Serum , Qual Negative (Negative) SARS-CoV-2 (PCR) (Negative) Blood Type Antibody Screen 12/21/20 12/21/20 12/21/20 Range/Units 06:00 07:29 08:28 WBC (4.5-11.0) X10^3/uL RBC (4.0-5.2) X10^6/uL Hgb 12.6 (12.0-16.0) g/dL Hct 36.6 (36-46) % MCV (80-100) fL MCH (26-34) PG MCHC (30-36) % RDW (11.6-14.8) % Plt Count (150-400) X10^3/uL Neut % (Auto) Lymph % (Auto) [place] % (Auto) Eos % (Auto) Baso % (Auto) Lymph # (Auto) [place] # (Auto) Baso # (Auto) Total Counted Seg Neutrophils % (38-70) % Band Neutrophils % (3-7) % Lymphocytes % (Manual) (25-45) % Atypical Lymphs % ( - 0) % Monocytes % (Manual) (2-11) % Eosinophils % (Manual) (2-4) % Basophils % (Manual) (0-1) % Neutrophils # (Manual) (3481-7585) /uL RBC Morphology Sodium (137-145) mmol/L Potassium (3.4-5.1) mmol/L Chloride (98-107) mmol/L Carbon Dioxide (22-32) mmol/L BUN (7-17) mg/dL Creatinine (0.52-1.04) mg/dL Estimated GFR (>60) mL/min BUN/Creatinine Ratio (6-22) Glucose (70-100) mg/dL Calcium (8.4-10.2) mg/dL Total Bilirubin (0.2-1.3) mg/dL AST (14-36) IU/L ALT (<35) IU/L Alkaline Phosphatase (38-126) U/L Total Protein (6.3-8.2) g/dL Albumin (3.5-5.0) g/dL Globulin (1.7-4.1) g/dL Albumin/Globulin Ratio (1.0-2.8) Serum , Qual (Negative) SARS-CoV-2 (PCR) Negative (Negative) Blood Type O Positive Antibody Screen Negative Point of care testing: Urine Dip Bedside Urine Glucose Negative Bedside Urine Bilirubin - Negative Bedside Urine Ketone - Negative Urine Specific [place] 1.015 Bedside Urine Occult Blood - Negative Bedside Urine pH 8.0 Bedside Urine Protein - Negative Bedside Urine Urobilinogen - Negative Bedside Urine Nitrite - Negative Bedside Urine Leukocytes - Negative Esterase MDM Narrative Medical decision making narrative: Patient signed out to me by Dr. Webber or Dr. Pascal in ED to seen evaluate patient. She is going to take her to the OR for ex lap. She continues to have pain she was previously given morphine which seemed to help she has an allergy to Dilaudid. Discharge Plan Departure Patient Disposition: Admitted to Surgery Clinical Impression: Hemorrhagic ovarian cyst
[2020-12-21] MEDS: SODIUM CHLORIDE 0.9% 1,000 ML 1000 ML IV (04:28)
[2020-12-21] MEDS: ONDANSETRON 4 MG/2 ML INJ IV (04:28)
[2020-12-21] MEDS: MORPHINE 4 MG/ML INJ IV ×3 (04:29→08:15)
[2020-12-21 04:40] LABS: Add Manual Diff / Slide Review YES; Hematocrit 42.6 % (36-46); Hemoglobin 14.3 g/dL (12.0-16.0); Mean Corpuscular HGB Conc 33.6 % (30-36); Mean Corpuscular Hemoglobin 33.1 PG (26-34); Mean Corpuscular Volume 98.4 fL (80-100); Platelet Count 179 X10^3/uL (150-400); Red Blood Cell Count 4.32 X10^6/uL (4.0-5.2); Red Cell Distribution Width 13.1 % (11.6-14.8); White Blood Cell Count 7.1 X10^3/uL (4.5-11.0)
--- NOTE | 2020-12-21 04:41 | DI.CT.S_ITS ---
PROCEDURE: CT ABDOMEN PELVIS W CON INDICATIONS: severe pelvic pain TECHNIQUE: After the administration of intravenous contrast, 5 mm thick sections acquired from the diaphragm to the symphysis. 5 mm coronal and sagittal reformats were acquired. For radiation dose reduction, the following was used: automated exposure control, adjustment of mA and/or kV according to patient size. COMPARISON: [facility], US, US PELVIC COMPLETE, 08/16/2018, 9:47. [facility], US, US PELVIC COMPLETE, 12/21/2020, 6:12. [facility], US, US PELVIC COMPLETE, 09/03/2018, 18:41. [facility], CT, CT ABDOMEN PELVIS W CON, 05/11/2018, 13:04. FINDINGS: Image quality: Excellent. ABDOMEN: Lung bases: Lung bases are clear. Heart size is normal. Solid organs: There is hepatic steatosis. Liver is normal in size. There is focal fat adjacent to the falciform ligament. Gallbladder is normal. Biliary system is non dilated. Pancreas enhances normally. Spleen is normal in size and enhancement. No adrenal nodules. Kidneys demonstrate normal size and enhancement, without hydronephrosis. Peritoneum and bowel: Bowel loops demonstrate normal caliber. There is mild thickening in sigmoid colon, likely due to nondistention. Appendix is absent. There is a moderate amount of stool in colon. No free air. A small amount of free fluid is present in the right pericolic gutter and pelvis. Nodes and vessels: No retroperitoneal or mesenteric adenopathy by size criteria. Aorta and inferior vena cava are normal in size. Miscellaneous: No ventral hernias. PELVIS: Genitourinary: Uterus is normal. There is a small amount of free fluid in the cul-de-sac, which demonstrates CT density 37.4 HU, higher than simple fluid. Right ovary is normal. Left ovary contains a collapsing corpus luteum. Bladder wall thickness is normal. There is a small amount of air within the bladder lumen. Miscellaneous: No inguinal hernias or adenopathy. Bones: No suspicious bony lesions. No vertebral body compression fractures. IMPRESSION: 1. There is a small amount of free fluid is present in the right pericolic gutter and within the cul-de-sac free fluid in the cul-de-sac demonstrates CT density higher than simple fluid, most likely related to a ruptured hemorrhagic ovarian cyst. A corpus luteal cyst is noted in the left ovary. 2. The sigmoid colon is collapsed, which is likely responsible the appearance of mild thickening. Mild colitis may be present. Recommend clinical correlation. 3. Small amount of air within the bladder lumen. This finding may be iatrogenic or related to urinary tract infection related to gas-forming bacteria or a called enterovesical vesicle fistula. Recommend clinical correlation. No significant discrepancy with the night shift supervisor radiology preliminary report. Dictated by: Simone Fonseca M.D. on 12/21/2020 at 8:07 Approved by: Simone Fonseca M.D. on 12/21/2020 at 8:22
[2020-12-21 04:47] LABS: Alanine Aminotransferase 15 IU/L (<35); Albumin 4.3 g/dL (3.5-5.0); Albumin Globulin Ratio 1.3 (1.0-2.8); Alkaline Phosphatase 72 U/L (38-126); Aspartate Aminotransferase 26 IU/L (14-36); BUN Creatinine Ratio 22.6 (6-22); Bilirubin Total 0.3 mg/dL (0.2-1.3); Blood Urea Nitrogen 12 mg/dL (7-17); Calcium 9.7 mg/dL (8.4-10.2); Carbon Dioxide 27 mmol/L (22-32); Chloride 105 mmol/L (98-107); Estimated Glomerular Filt Rate > 60.0 mL/min (>60); Globulin 3.3 g/dL (1.7-4.1); Glucose 97 mg/dL (70-100); HEMOLYSIS 34 (0-50); Potassium 4.2 mmol/L (3.4-5.1); Sodium 138 mmol/L (137-145); Total Protein 7.6 g/dL (6.3-8.2)
[2020-12-21 05:03] LABS: Pregnancy Test Serum,Qual Negative (Negative)
--- NOTE | 2020-12-21 05:28 | DI.US.S_ITS ---
PROCEDURE: US PELVIC COMPLETE INDICATIONS: SEVERE PELVIC PAIN POST-INTERCOURSE TECHNIQUE: Real-time scanning was performed of the pelvic organs, with image documentation. Additional endovaginal scanning was necessary due to incomplete visualization of the adnexal and endometrial structures by transabdominal scanning. COMPARISON: [facility], US, US PELVIC COMPLETE, 09/03/2018, 18:41. FINDINGS: Uterus: Uterus is normal in size at 8.2 x 4.8 x 4.1 cm. The endometrium measures 5 mm in combined thickness. Ovaries: Right ovary measures 4.0 x 2.8 x 1.9 cm. Left ovary measures 3.8 x 2.6 x 2.2 cm. There is a 1.8 x 1.9 x 1.9 cm heterogeneous isoechoic lesion within the left ovary suggestive of a complex cyst. Vascular flow is noted in the bilateral ovaries. Other: No pathologic free abdominal or pelvic fluid. IMPRESSION: 1. Pelvis without acute sonographic abnormalities. Specifically, no evidence for ovarian torsion. 2. A 1.9 cm complex appearing left ovarian cyst which may represent a hemorrhagic cyst or endometrioma. Recommend follow-up pelvic ultrasound in 6-12 weeks to document stability versus resolution. No significant discrepancy with the shift superintendent caustic cresylate radiology preliminary report. Dictated by: Reji Pitts M.D. on 12/21/2020 at 7:12 Approved by: Reji Pitts M.D. on 12/21/2020 at 9:28
[2020-12-21] MEDS: MORPHINE 4 MG/ML INJ 6.5 MG IV (05:34)
[2020-12-21] MEDS: KETOROLAC 60 MG/2 ML VIAL 15 MG IV (05:34)
[2020-12-21 06:07] LABS: Hematocrit 36.6 % (36-46); Hemoglobin 12.6 g/dL (12.0-16.0)
[2020-12-21 06:42] LABS: Neutrophils Absolute Manual 3408 /uL (3000-5900); Total Cells Counted 100
[2020-12-21 06:43] LABS: RBC Morphology Normal Morphology
--- NOTE | 2020-12-21 09:09 | PM.HP.1 ---
History of Present Illness History of Present Illness Date Patient Seen: 12/21/20 Time Patient Seen: 08:08 Chief complaint: acute abd pain, diff breathing had covid shot 3 dy Narrative: Patient is a 30-year-old 2 para 1 who presented to the emergency department after acute onset of pelvic/abdominal pain related to intercourse. Patient reports that about 10 minutes after intercourse she had the acute onset of abdominal pain that worsened over the course of an hour. She came to the emergency department and required 3 doses of IV morphine to take the edge off of the pain. She has not had any vaginal bleeding. She has not had a fever or chills. The intercourse was vaginal. She has 1 vaginal delivery. Patient History Medical History History of use of contraceptive intrauterine device (IUD) Kidney stone Vaginal delivery (2013) Surgical History History of appendectomy (~2008) S/P tubal ligation S/P tubal ligation Family & Social History Family History Grandmother Cancer Mother Cancer Family/Other Cancer Social History: household members spouse,family lives independently Yes caregiver/support person No Safety & Behavioral: Feels Safe in Current Yes Environment Tobacco & Substance use: Smoking Status Never smoker alcohol intake never alcohol intake frequency 0-2 drinks per day Substance Use Type does not use Meds Home Medications and Allergies Home Medications Medication Instructions Recorded Confirmed Type ibuprofen 600 mg PO TID PRN MDD 2400 10/11/18 12/21/20 History Allergies Allergy/AdvReac Type Severity Reaction Status Date / Time chocolate flavor Allergy Severe Anaphylaxis Verified 12/21/20 07:01 prednisone Allergy Intermediate ITCHING Verified 12/21/20 07:01 hydromorphone [From DILAUDID] AdvReac Unknown DIZZINESS Verified 09/16/19 12:55 Exam Vital Signs (past 8 hours): - 12/21/20 04:24 12/21/20 04:34 12/21/20 05:02 Temperature 99.1 F Pulse Rate 81 70 58 L Respiratory Rate 26 H Blood Pressure 150/86 H Pulse Oximetry 99 99 99 12/21/20 05:30 12/21/20 06:00 12/21/20 06:30 Temperature Pulse Rate 59 L 69 57 L Respiratory Rate Blood Pressure Pulse Oximetry 99 98 97 12/21/20 06:37 12/21/20 06:53 12/21/20 07:00 Temperature Pulse Rate 65 66 58 L Respiratory Rate Blood Pressure 111/62 115/66 104/56 L Pulse Oximetry 98 98 98 12/21/20 07:30 12/21/20 08:00 12/21/20 08:30 Temperature Pulse Rate 60 68 54 L Respiratory Rate Blood Pressure 97/53 L 117/69 103/56 L Pulse Oximetry 98 98 97 Oxygen Delivery Method Room Air Narrative Exam Narrative: Generally: Patient crawled up in the position on the cart, due to pelvic/abdominal pain. Lungs: Clear to auscultation bilaterally Cardiovascular: Regular rate and rhythm Abdomen: Soft, tender to touch. Rebound tenderness in both lower quadrants. Some guarding. External genitalia: Normal Vagina: Normal Cervix: Parous Bimanual exam: A 6 week size anteverted uterus. There is tenderness above the pubic symphysis. There is tenderness in the right adnexa. CT scan: Free fluid in the pelvis in the right pelvic gutter. Air in the lumen of the bladder. Otherwise unremarkable. Pelvic ultrasound: Free fluid in the pelvis. Corpus luteal cyst on the left ovary. Objective Labs Result Diagrams: 12/21/20 06:00 12/21/20 04:25 Labs: Laboratory Results - last 24 hr 12/21/20 12/21/20 12/21/20 04:25 04:25 04:25 WBC 7.1 RBC 4.32 Hgb 14.3 Hct 42.6 MCV 98.4 MCH 33.1 MCHC 33.6 RDW 13.1 Plt Count 179 Neut % (Auto) Not Reportable Lymph % (Auto) Not Reportable [place] % (Auto) Not Reportable Eos % (Auto) Not Reportable Baso % (Auto) Not Reportable Lymph # (Auto) Not Reportable [place] # (Auto) Not Reportable Baso # (Auto) Not Reportable Total Counted 100 Seg Neutrophils % 45.0 Band Neutrophils % 3.0 Lymphocytes % (Manual) 41.0 Atypical Lymphs % 4.0 H Monocytes % (Manual) 3.0 Eosinophils % (Manual) 3.0 Basophils % (Manual) 1.0 Neutrophils # (Manual) 3408 RBC Morphology Normal morphology Sodium 138 Potassium 4.2 Chloride 105 Carbon Dioxide 27 BUN 12 Creatinine 0.53 Estimated GFR > 60.0 BUN/Creatinine Ratio 22.6 H Glucose 97 Calcium 9.7 Total Bilirubin 0.3 AST 26 ALT 15 Alkaline Phosphatase 72 Total Protein 7.6 Albumin 4.3 Globulin 3.3 Albumin/Globulin Ratio 1.3 Serum , Qual Negative Blood Type Antibody Screen 12/21/20 12/21/20 06:00 07:29 WBC RBC Hgb 12.6 Hct 36.6 MCV MCH MCHC RDW Plt Count Neut % (Auto) Lymph % (Auto) [place] % (Auto) Eos % (Auto) Baso % (Auto) Lymph # (Auto) [place] # (Auto) Baso # (Auto) Total Counted Seg Neutrophils % Band Neutrophils % Lymphocytes % (Manual) Atypical Lymphs % Monocytes % (Manual) Eosinophils % (Manual) Basophils % (Manual) Neutrophils # (Manual) RBC Morphology Sodium Potassium Chloride Carbon Dioxide BUN Creatinine Estimated GFR BUN/Creatinine Ratio Glucose Calcium Total Bilirubin AST ALT Alkaline Phosphatase Total Protein Albumin Globulin Albumin/Globulin Ratio Serum , Qual Blood Type O Positive Antibody Screen Negative Assessment & Plan Assessment & Plan narrative: Assessment: 30-year-old 2 para 1 with acute onset of lower abdominal/pelvic pain related to intercourse. Increasing free fluid in the pelvis Pain taking large amounts of pain medicine to mitigate Suspect bleeding, ruptured ovarian cyst Plan: Diagnostic laparoscopy with possible cauterization of bleeding ovary. The risks, benefits, and alternatives to the procedure were explained to the patient. The risks including bleeding, infection, injury to the bowel, bladder, or ureters. She understands these risks and agrees to proceed. A full par Q was held and consent form was signed. COVID-19 COVID-19 status: Negative Result date/Date tested (Pos, Neg/Pending): 12/21/20 Time Spent With Patient Time with patient: 15-24 minutes
[2020-12-21 09:11] LABS: COVID19 -Nasal RAPID Negative (Negative)
[2020-12-21] MEDS: LACTATED RINGERS 1,000 ML 100 ML IV (09:35)
--- NOTE | 2020-12-21 10:09 | SUR.OPER ---
Lithotomy on padded OR bed, head on pillow, arms secured on padded arm boards at <90 degrees abduction. Legs secured in padded yellow fins stirrups.
[2020-12-21] MEDS: BUPIVACAINE 0.5% W/ EPI (PF) 30 ML VIAL INJ (10:18)
--- NOTE | 2020-12-21 10:37 | P.OP_ITS ---
Operative Date/Time/Diagnoses Date of procedure: 12/21/20 Time of procedure: 10:37 Pre-op diagnosis: Continued pelvic/abd pain Free fluid in the abdomen Post-op diagnosis: same Procedure & Clinicians Procedure: Procedures Operation Date: 12/21/20 09:45 Actual Procedures Side Surgeon p Laparoscopy, Diagnostic, VACUUM PLASTIC FORMING MACHINE OPERATOR with cautery of left ovarian cyst Ely Pascal MD Indications: Pelvic/abdominal pain after intercourse Free blood in the pelvis Surgeon: Ely Pascal Anesthesia Type: General and Local Operative Notes Findings: 6 week size anteverted uterus Normal right ovary Tubes s/p ligation bilaterally Bleeding, ruptured left ovarian cyst 150 cc of blood in the pelvis Closure Type: primary Specimen(s): none Applied: catheter (in/out) Estimated blood loss (mL): 5 Blood products transfused: none Procedure in detail: After informed consent was obtained, the patient was taken to the operating room where she was placed in the dorsal supine position. After adequate general endotracheal anesthesia was achieved, she was placed in the dorsal lithotomy position, and prepped and draped in the usual sterile fashion. A time-out was performed. The bladder was emptied of 100 cc of clear yellow urine. A bivalve speculum was placed into the vagina. Single-tooth tenaculum was placed on the anterior lip of the cervix. The cervical os was sequentially dilated until the Zumi uterine manipulator could pass easily into the endometrial cavity. The single-tooth tenaculum was removed from the anterior lip of the cervix. The bivalve speculum was removed from the vagina. Attention was then turned to the abdomen where 6 cc of 0.5% Marcaine with epinephrine were injected in the umbilical fold. A 5 mm incision was made through the previous incision. A Veress needle was placed into the peritoneal cavity, and its placement confirmed by aspiration and drop test. The abdominal cavity was insufflated with 3.2 L of CO2. The Veress needle was removed, and a 5 mm trocar was placed without difficulty. Two other incisions were made lateral to the umbilicus approximately 4 cm, after 0.5% Marcaine with epinephrine were injected. Two 5 mm incisions were made. Two 5 mm trocars were placed under direct visualization. The probe was used to move the bowel out of the pelvis. There was a large amount of free blood. This was aspirated. The right ovary was inspected and was found to be normal. The right tube was status post ligation. On the left side there was a cyst at the end of the ovary that had ruptured and was bleeding actively. This was cauterized with the PlasmaKinetic with settings at 40 w. Hemostasis was achieved. The pelvis was copiously irrigated with warm normal saline. No further bleeding was noted. The instruments were removed from the abdomen. The CO2 was allowed to escape. The incisions were repaired with 4 0 Monocryl in a subcuticular fashion. Steri- Strips and Allevyn dressings were placed. The Zumi uterine manipulator was removed from the uterus. Sponge, lap, and instrument counts were correct x2. The patient tolerated the procedure well, and was taken to PACU in stable condition. Complications: none Post-operative Condition: stable Disposition: PACU Plan for aftercare: Home after recovery
[2020-12-21] MEDS: fentaNYL 100 MCG/2 ML INJ IV ×2 (10:44→11:09)
[2020-12-21] MEDS: KETOROLAC 30 MG/ML VIAL IV (10:54)
[2020-12-21] MEDS: LORazepam 2 MG/ML INJ 0.5 MG IV (10:55)
--- NOTE | 2020-12-21 11:00 | PM.PREOP ---
Pre-operative Note COVID-19 COVID-19 status: Negative Result date/Date tested (Pos, Neg/Pending): 12/21/20 Interval Note History & Physical reviewed/Exam performed by Physician: Yes Changes to H&P: No H&P completed within 30 days and has changed as indicated here:: 12/21/20
[2020-12-21] MEDS: OXYCODONE/ACETAMINOPHEN 5/325 TABLET 1 TAB PO (11:21)
--- NOTE | 2020-12-21 11:23 | SUR.PHASEI ---
Pt received to PACU at 1041. Oral airway in place removed on arrival to PACU. Report received from Dr Rocha and SPRING Freeman. Pt emotional and in pain. Medicated as noted with good result. Report given to SPRING Doyle and care assumed.
[2020-12-21] MEDS: ONDANSETRON 4 MG ODT PO (13:36)
--- NOTE | 2020-12-21 13:37 | SUR.PHASEII ---
Zofran ODT given for nausea and small emesis of 100 ml collectively. Was not nauseated prior to IV being DC's, and stated that her pain level was comfortable. FACETER was assisting the patient in dressing when the nausea began. Patient wimpering, apologizing for getting nauseated. Explained that it sometimes happens and not to feel badly about it. C/o dizziness; encouraged her to lie back in the bed. Pt declined to have HOB lowered but she is resting it on a pillow on the siderail. No current emesis.
--- NOTE | 2020-12-21 13:44 | SUR.PHASEII ---
2725 late entry Received patient into OPD, very drowsy and dozing. Allowed to sleep
--- NOTE | 2020-12-21 14:03 | SUR.PHASEII ---
1315 late entry IV dc'd
[2020-12-21] MEDS: METOCLOPRAMIDE 10 MG/2 ML INJ IV (14:36)
[2020-12-21] MEDS: LACTATED RINGERS 500 ML 1000 ML IV (14:37)
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
== END 2020-12-21 15:10 | disposition home or self-care (01) ==
LOC: ED 08:17 → AC 09:20 → OR 12:11
PROVIDERS: Emergency Medicine; Emergency Provider Emergency Medicine; PCP Family Medicine; Referring Provider Emergency Medicine; Visit Provider Obstetrics & Gynecology
PROC: (CPT 49320; principal; 2020-12-21 09:45)
DX: N83.202 Unspecified ovarian cyst, left side (principal); Z20.822 Contact with and (suspected) exposure to COVID-19
CPT/HCPCS: 49322; 36415; 74177; 76830; 76856; 80053; 81003; 84703; 85007; 85014; 85018; 85025; 86850; 86900; 86901; 87635; 96361; 96374; 96375; 96376; 99284; 99285; C9803; J0330; J1885; J2060; J2250; J2270; J2405; J2704; J2765; J3010; Q9967

== ENCOUNTER 2021-06-19 11:32 | Emergency (ER) | payer OTHER, MEDICAID, SELFPAY ==
[2021-06-19 11:55] VITALS: BP 117/69; PULSE 63; RESP 20; TEMP 36.8; O2SAT 99; BMI 26.5
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
[2021-06-19] MEDS: ACETAMINOPHEN 325 MG TABLET 975 MG PO (14:13)
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
[2021-06-19 14:40] VITALS: BP 128/83; PULSE 58; RESP 24; O2SAT 99
== END 2021-06-19 14:42 | disposition home or self-care (01) ==
PROVIDERS: Emergency Provider Nurse Practitioner Critical Care Medicine; PCP Family Medicine
DX: S20.222A Contusion of left back wall of thorax, initial encounter (principal); W22.8XXA Striking against or struck by other objects, initial encounter
CPT/HCPCS: 71111; 99283; 99284

== ENCOUNTER → 2021-06-30 10:41 | Outpatient (CLI) | payer OTHER, MEDICAID, SELFPAY ==
--- NOTE | 2021-06-30 | DI.RAD.S_ITS ---
PROCEDURE: XR RIBS BI MIN 4V W CXR1V INDICATIONS: BILATERAL RIB PAIN TECHNIQUE: 2 views of the bilateral ribs were acquired, along with a single view chest. COMPARISON: [facility], [place], XR RIBS BI MIN 4V W CXR1V, 06/19/2021, 12:03. FINDINGS: Surgical changes and devices: None. Bones and chest wall: No fractures or dislocations. No suspicious bony lesions. Overlying soft tissues appear unremarkable. Lungs and pleura: No pleural effusions or pneumothorax. Lungs appear clear. Mediastinum: Mediastinal contours appear normal. Heart size is normal. IMPRESSION: No evidence of displaced rib fracture. No evidence acute pulmonary process. Dictated by: Stephan Devi M.D. on 06/30/2021 at 12:24 Approved by: Stephan Devi M.D. on 06/30/2021 at 12:53
== END ==
PROVIDERS: PCP Family Medicine; Referring Provider Family Medicine; Visit Provider Family Medicine
DX: R07.81 Pleurodynia (principal)
CPT/HCPCS: 71111